=== PATIENT | female | born 1970 | race Caucasian/White ===

== ENCOUNTER 2021-02-19 08:29 | Outpatient (REF) | payer OTHER, MEDICAID, SELFPAY ==
--- NOTE | ~2021-02-19 | XR_ITS ---
EXAMINATION: XR LUMBOSACRAL SPINE CLINICAL INFORMATION: Back pain COMPARISON: None TECHNIQUE: Three views of the lumbosacral spine. FINDINGS: There are 5 nonrib bearing lumbar vertebra. The bony texture and alignment is satisfactory. No acute fracture, spinal listhesis, spondylolysis identified. Disc spaces are maintained. Sacroiliac joints unremarkable. Pedicles intact. Psoas margins are evident. XR/XR lumbar spine 2-3V IMPRESSION: No significant bony abnormality of the lumbar spine identified.
== END 2021-02-19 08:30 | disposition home or self-care (01) ==
LOC: HO.XRAY 08:29
PROVIDERS: PCP Internal Medicine; Visit Provider Psychiatry & Neurology Neurology
DX: M54.9 Dorsalgia, unspecified (principal)
CPT/HCPCS: 72100

== ENCOUNTER 2021-02-25 14:05 | Outpatient (REF) | payer OTHER, MEDICAID, SELFPAY ==
[2021-02-25 15:01] LABS: Influenza A PCR NEGATIVE (Negative); Influenza B PCR NEGATIVE (Negative); Resp Syncy Virus RNA Qual PCR NEGATIVE (Negative); SARS COV2 PCR INHOUSE NEGATIVE (Negative)
== END 2021-02-25 14:06 | disposition home or self-care (01) ==
LOC: HO.LNP 14:05
PROVIDERS: Visit Provider Physician Assistant
DX: R11.0 Nausea (principal); Z20.822 Contact with and (suspected) exposure to COVID-19
CPT/HCPCS: 0241U

== ENCOUNTER 2021-02-26 07:24 | Emergency (ER) | payer OTHER, MEDICAID, SELFPAY ==
[2021-02-26 07:35] VITALS: BP 106/73; PULSE 84; RESP 18; TEMP 36.6; O2SAT 98; BMI 19.0
--- NOTE | 2021-02-26 08:02 | ED.GENADULT ---
HPI - General Adult General Chief complaint: General Medical Stated complaint: multiple complaints Time Seen by Provider: 02/26/21 08:02 Source: patient Mode of arrival: ambulatory Limitations: no limitations History of Present Illness HPI narrative: This is a 50-year-old female presenting to the emergency department with dark urine, malaise and an abdominal hernia that she is concerned about. Patient tells me that over the past week she does has not been feeling right, she tells me that her urine has been brown, she has been feeling tired and fatigued. And she also tells me that from time to time she has an abdominal hernia that she pushes back in. She tells me she went to an urgent care at of [facility], and they told her to get evaluated in the emergency department. Patient is not vaccinated against COVID. She tells me this may be related to her new diagnosis of hepatitis. She has no other complaints at this time. Onset (ago): week(s) (1) Radiation: non-radiation Severity: moderate Pain Consistency: constant Relieving factors: none Exacerbating factors: none Associated symptoms: denies other symptoms Treatments prior to arrival: none Related Data Home Medications Medication Instructions Recorded Confirmed acetaminophen 300 mg-codeine 30 mg tab PO 02/25/21 tablet alprazolam 0.5 mg tablet 0.5 mg PO TID PRN 02/25/21 carisoprodol 350 mg tablet 350 mg PO BEDTIME PRN 02/25/21 dextroamphetamine-amphetamine 10 1 tab PO BID 02/25/21 mg tablet ibuprofen 600 mg tablet 600 mg PO TID 02/25/21 norethindrone (contraceptive) 0.35 0.35 mg PO DAILY 02/25/21 mg tablet Allergies Allergy/AdvReac Type Severity Reaction Status Date / Time No Known Allergies Allergy Verified 02/26/21 07:35 [No Known Allergies*] Review of Systems Review of Systems: Constitutional : No Weight loss, No Fever, No Chills, + Fatigue, + Malaise ENT/Mouth : No sore throat, No Rhinorrhea Eyes: No Eye Pain, No Swelling, No Redness Cardiovascular : No Chest Pain, No SOB, No Dyspnea on Exertion, No Orthopnea, No Edema, No Palpitations Respiratory : No Cough, No Sputum, No Wheezing Gastrointestinal : No Nausea, No Vomiting, No Diarrhea, No Constipation, No abdominal Pain, No Hematochezia, No Melena, +abdominal hernia Genitourinary : No Dysuria, No Urinary Frequency, No Hematuria, + dark urine Musculoskeletal : No joint pain, No Myalgias, No Joint Swelling Skin : No Skin Lesions, No rash Neuro : No Weakness, No Numbness, No Dizziness, No Headache All other systems reviewed and are negative Yes all other systems are reviewed and are negative [facility] Past Medical History Attestation statement: The following information was validated with the patient. Source: old records reviewed and nursing notes reviewed Social History Social History Advance Directives: No Advance Directives Information Provided: No Physical Exam Vital Signs: Vital Signs: Last Vital Signs Temp 98 F 02/26/21 08:31 Pulse 59 02/26/21 08:31 Resp 15 02/26/21 08:31 BP 111/59 L 02/26/21 08:31 Pulse Ox 95 02/26/21 08:31 BMI result Body Mass Index 19.0 VSS Appearance: Alert.? Oriented X3.? No acute distress.? Head: Normocephalic, atraumatic, no step-offs or deformities Eyes: Pupils equal, round and reactive to light.? ENT: Pharynx normal.? Neck: Normal inspection.? Neck supple.? CVS: Normal heart rate and rhythm.? Pulses normal.? Respiratory: No respiratory distress.? Breath sounds normal.? Abdomen: Soft and nontender.?Normoactive bowel sounds. + small soft easily reducible abdominal hernia, painless 2 cm above umbillicus Skin: Skin warm and dry.? Normal skin color.? Normal skin turgor.? Extremities: No lower extremity edema.? No calf ttp. 5/5 strength to bilateral upper and lower extremities Back: No midline tenderness, no C-spine tenderness, full range of motion, no CVA tenderness bilaterally Neuro: Oriented X 3.? No motor deficit.? No sensory deficit. Course Reevaluation(s) Reevaluation #1: No leukocytosis or anemia noted. Paitents transaminases noted to be slightly elevated, glucose low 58. I brought patient pudding, and two apple juices. Urine is clean, COVID test negative. Patient doesn't report nausea, vomiting, diarrhea or constipation. Very unlikely this is obstruction. Time: 08:56 Reevaluation #2: I educated patient on her laboratory studies. She starts yelling at me, nurse Ronni at the bedside, patient is unhappy because she wants her hernia repaired today. Patient does not understand that this is not an emergent procedure. I have also told patient that here in the emergency department we do not treat hepatitis-C and she requires prompt follow-up by Infectious Disease. Patient starts yelling at me and tells me i need a repair now Patient now tells me she has abdominal pain and body aches. Will give Tylenol Will repeat POC. Prior to DC Time: 09:22 Reevaluation #3: Patient refusing repeat point of care. She has been going to the vending machine and eating, she ate the putting I provided her as well as to apple juices. I gave patient Tylenol for body aches however she got upset PE she states that she is having severe pain. She is screaming in the hallway, telling me you suck , and telling me that the nurse sucks too . I tried to explain to the patient that hepatitis C is not something that we treat here in the emergency department, I told her her labs do not show any acute changes. And I tried to tell her that her abdominal hernia requires outpatient follow-up with a general surgeon. Patient upset. Comfortable with discharge. Medical Decision Making MDM Narrative Medical decision making narrative: 805 50 yo F pmhx hep C presents to ED w/ brow unrine , fatigue/malaise and an abdominal hernia X1 week PE benign did note a small soft easily reducible abdominal hernia, painless 2 cm above umbillicus. Unlikely this is incarcerated. Plan basic labs, UA. No need for imaging at this time as abdomen is soft nontender, nondistended. No signs or symptoms of obstruction. Lab Data Result diagrams: 02/26/21 08:37 02/26/21 08:37 Labs: Lab Results 02/26/21 02/26/21 02/26/21 Range/Units 07:43 08:37 08:37 WBC 8.6 (4.8-10.8) X10*3/uL RBC 4.53 (4.20-5.50) X10*6/uL Hgb 13.8 (12.0-16.0) g/dl Hct 42.5 (37.0-47.0) % MCV 93.8 (80.0-98.0) fL MCH 30.5 (27.0-33.0) pg MCHC 32.5 (31.0-35.0) g/dl RDW 11.9 (11.0-16.0) % Plt Count 218 (160-400) X10*3/uL MPV 9.0 L (9.4-12.3) fL Immature Gran % (Auto) 0.5 H (0.0-0.4) % Neut % (Auto) 50.8 (45-73) % Lymph % (Auto) 27.4 (20-40) % [place] % (Auto) 4.6 (2-11) % Eos % (Auto) 16.2 H (0-4) % Baso % (Auto) 0.5 (0-2) % Lymph # (Auto) 2.4 (1.2-4.9) X10*3/uL Independence # (Auto) 0.4 (0.1-1.2) X10*3/uL Eos # (Auto) 1.4 H (0.0-0.4) X10*3/uL Baso # (Auto) 0.0 (0.0-0.2) X10*3/uL Abs Immat Gran (auto) 0.04 H (0.00-0.03) X10*3/uL Absolute Neuts (auto) 4.4 (2.0-8.3) x10*3/uL Absolute Nucleated RBC 0.000 (0.0-0.012) X10*3/uL Nucleated RBC % (auto) 0.0 (0.0-0.2) /100WBC Sodium 142 (135-145) mmol/L Potassium 4.5 (3.3-5.1) mmol/L Chloride 107 (96-108) mmol/L Carbon Dioxide 29 (22-29) mmol/L Anion Gap 11 L (12-20) BUN 20 H (9-16) mg/dL Creatinine 0.73 (0.5-1.4) mg/dL Estim Creat Clear Calc 84.3 Estimated GFR > 60 Random Glucose 58 L* (60-115) mg/dL Calcium 9.0 (8.4-10.2) mg/dL Magnesium 2.0 (1.6-2.6) mg/dL Total Bilirubin 0.3 (0.0-1.0) mg/dL AST 49 H (5-31) U/L ALT 93 H (0-31) U/L Alkaline Phosphatase 62 (39-117) U/L Total Protein 6.4 L (6.5-8.0) g/dL Albumin 3.9 (3.5-5.0) g/dL Urine Color Urine Appearance Urine pH (5.0-8.0) Ur Specific [place] (1.005-1.025) Urine Protein (NEG-TRACE) MG/DL Urine Glucose (UA) (NEG) MG/DL Urine Ketones (NEG) MG/DL Urine Blood (NEG) Urine Nitrite (NEG) Ur Leukocyte Esterase (NEG) COVID-19 (LAO) Negative (Negative) COVID-19 Clin Com See Note 02/26/21 Range/Units 08:37 WBC (4.8-10.8) X10*3/uL RBC (4.20-5.50) X10*6/uL Hgb (12.0-16.0) g/dl Hct (37.0-47.0) % MCV (80.0-98.0) fL MCH (27.0-33.0) pg MCHC (31.0-35.0) g/dl RDW (11.0-16.0) % Plt Count (160-400) X10*3/uL MPV (9.4-12.3) fL Immature Gran % (Auto) (0.0-0.4) % Neut % (Auto) (45-73) % Lymph % (Auto) (20-40) % Independence % (Auto) (2-11) % Eos % (Auto) (0-4) % Baso % (Auto) (0-2) % Lymph # (Auto) (1.2-4.9) X10*3/uL Independence # (Auto) (0.1-1.2) X10*3/uL Eos # (Auto) (0.0-0.4) X10*3/uL Baso # (Auto) (0.0-0.2) X10*3/uL Abs Immat Gran (auto) (0.00-0.03) X10*3/uL Absolute Neuts (auto) (2.0-8.3) x10*3/uL Absolute Nucleated RBC (0.0-0.012) X10*3/uL Nucleated RBC % (auto) (0.0-0.2) /100WBC Sodium (135-145) mmol/L Potassium (3.3-5.1) mmol/L Chloride (96-108) mmol/L Carbon Dioxide (22-29) mmol/L Anion Gap (12-20) BUN (9-16) mg/dL Creatinine (0.5-1.4) mg/dL Estim Creat Clear Calc Estimated GFR Random Glucose (60-115) mg/dL Calcium (8.4-10.2) mg/dL Magnesium (1.6-2.6) mg/dL Total Bilirubin (0.0-1.0) mg/dL AST (5-31) U/L ALT (0-31) U/L Alkaline Phosphatase (39-117) U/L Total Protein (6.5-8.0) g/dL Albumin (3.5-5.0) g/dL Urine Color YELLOW Urine Appearance CLEAR Urine pH 6.0 (5.0-8.0) Ur Specific [place] >= 1.030 H (1.005-1.025) Urine Protein NEG (NEG-TRACE) MG/DL Urine Glucose (UA) NEG (NEG) MG/DL Urine Ketones NEG (NEG) MG/DL Urine Blood NEG (NEG) Urine Nitrite NEG (NEG) Ur Leukocyte Esterase NEG (NEG) COVID-19 (ALO) (Negative) COVID-19 Clin Com Critical Care Time Critical Care Time Critical Care Time: No Discharge Plan Discharge Clinical Impression: Malaise, Hernia Patient Disposition: Home, Self-Care Instructions: Fatigue (ED) Additional Instructions: Take your medications as prescribed. If you were prescribed antibiotics today, it is important that you take your medication to their entirety, do not skip any doses, do not finish them early. Follow-up with your primary care provider this week. I have provided you with number for our surgeons, they can further evaluate this hernia if it is bothering you. Return to the emergency department with new or worsening symptoms. In case of emergency call 911 You tested negative for COVID-19 today. You mention to me that you tested positive for hepatitis-C, this requires prompt follow-up by Infectious Disease. I have provided you with our infectious disease doctor here at [facility]. Your abdominal hernia requires further workup from a general surgeon. Prescriptions: No Action ibuprofen 600 mg tablet 600 mg PO TID RF: 0 alprazolam 0.5 mg tablet 0.5 mg PO TID PRNRF: 0 dextroamphetamine-amphetamine 10 mg tablet 1 tab PO BID RF: 0 norethindrone (contraceptive) 0.35 mg tablet 0.35 mg PO DAILY RF: 0 acetaminophen-codeine 300-30 mg tablet PO RF: 0 carisoprodol 350 mg tablet 350 mg PO BEDTIME PRNRF: 0 Referrals: Evelyn Randall MD [Physician] - 2 days Bertin Ruiz MD [Primary Care Provider] - 2 days Stand Alone Forms: Work/School Release
[2021-02-26 08:31] VITALS: BP 111/59; PULSE 59; RESP 15; TEMP 36.6; O2SAT 95
[2021-02-26 08:47] LABS: COVID-19 Test Negative (Negative)
[2021-02-26 08:51] LABS: MANUAL DIFF FLAG NO
[2021-02-26 08:52] LABS: Appearance Urine CLEAR; Basophils Percent Auto 0.5 % (0-2); Color Urine YELLOW; Eosinophils Absolute Auto 1.4 X10*3/uL (0.0-0.4); Eosinophils Percent Auto 16.2 % (0-4); Glucose Urine UA NEG (NEG); Hematocrit 42.5 % (37.0-47.0); Hemoglobin 13.8 g/dl (12.0-16.0); Imm Gran Abs Auto 0.04 X10*3/uL (0.00-0.03); Imm Gran Pct Auto 0.5 % (0.0-0.4); Leukocyte Esterase Urine NEG (NEG); Lymphocytes Absolute Auto 2.4 X10*3/uL (1.2-4.9); Lymphocytes Percent Auto 27.4 % (20-40); Mean Corpuscular HGB Conc 32.5 g/dl (31.0-35.0); Mean Corpuscular Hemoglobin 30.5 pg (27.0-33.0); Mean Corpuscular Volume 93.8 fL (80.0-98.0); Monocytes Absolute Auto 0.4 X10*3/uL (0.1-1.2); Monocytes Percent Auto 4.6 % (2-11); Neutrophils Absolute Auto 4.4 x10*3/uL (2.0-8.3); Neutrophils Percent Auto 50.8 % (45-73); Nitrite Urine NEG (NEG); Platelet Count 218 X10*3/uL (160-400); Red Blood Count 4.53 X10*6/uL (4.20-5.50); Red Cell Distribution Width 11.9 % (11.0-16.0); Specific Gravity - Urine >= 1.030 (1.005-1.025); Urine Blood NEG (NEG); Urine Ketones NEG (NEG); Urine Protein NEG (NEG-TRACE); White Blood Count 8.6 X10*3/uL (4.8-10.8)
[2021-02-26 09:12] LABS: Alanine Aminotransferase 93 U/L (0-31); Albumin Level 3.9 g/dL (3.5-5.0); Alkaline Phosphatase 62 U/L (39-117); Anion Gap 11 (12-20); Aspartate Amino Transferase 49 U/L (5-31); Bilirubin Total 0.3 mg/dL (0.0-1.0); Blood Urea Nitrogen 20 mg/dL (9-16); Carbon Dioxide 29 mmol/L (22-29); Chloride 107 mmol/L (96-108); Creatinine Clr Calc Pharmacy 84.3; Estimated Glomerular Filt Rate > 60; Glucose Random 58 mg/dL (60-115); Potassium 4.5 mmol/L (3.3-5.1); Sodium 142 mmol/L (135-145); Total Protein 6.4 g/dL (6.5-8.0)
--- NOTE | 2021-02-26 09:22 | PC.NURSE ---
PT WAS OFFERED A VARIETY OF DRINKS AND FOOD TO CORRECT LOW BS. SHE IS AGITATED WITH PROVIDER AND THREATENING AT TIMES WHEN EDUCATED ON FOLLOW UP CARE REQUIRED AN OP. SHE IS STATINGAND DEMANDING NEEDS FOR HEP C CARE, HERNIA, BACK PAIN...SHE WAS OFFERED PAIN MANAGEMENT BUT CONTINUES TO VOICE COMPLAINTS
--- NOTE | 2021-02-26 10:58 | PC.NURSE ---
PT STORMED TO DESK ASKING TO SPEAK TO THE [employer] PRESIDENT/PRACTICE OWNER. THIS RN INTRODUCED HERSELF AND ASKED HOW I COULD BE OF ASSISTANCE. PT ANGRY WITH PROVIDER AND NURSE STATING THEY AREN'T DOING THEIR FUCKING JOB . IF THE PROVIDER COULD SEE THROUGH HER LONG EYELASHES, MAYBE SHE COULD SEE I AM IN PAIN . PT IS AMBULATORY, NO FACIAL GRIMACING OR S/S OF DISTRESS. DRINKING JUICE AND EATING SNACKS AT THE BEDSIDE. PT BACK AND FORTH WITH THIS RN STATING I'M HERE TO GET MY HERNIA REPAIRED . PROVIDER EVALUATED PATIENT AND PROVIDED PATIENT WITH INFORMATION REGARDING OUTPATIENT FOLLOW UP CARE. PT ANGRY THAT WE ARE NOT TREATING HER PROBLEMS . THIS RN PROVIDED PATIENT WITH HOSPITAL RESOURCES FOR PROVIDERS (PCP, SPECIALTY SURGEON, INFECTIOUS DISEASE). PT STORMED OUT OF ER, SWEARING AT STAFF. PT KICKED OPEN DOOR WITH FOOT AND WALKED OUT OF ED.
== END 2021-02-26 11:21 | disposition home or self-care (01) ==
PROVIDERS: Physician Assistant; Emergency Provider Emergency Medicine; PCP Internal Medicine
DX: R53.81 Other malaise (principal); K46.9 Unspecified abdominal hernia without obstruction or gangrene; F17.200 Nicotine dependence, unspecified, uncomplicated; B19.20 Unspecified viral hepatitis C without hepatic coma; Z20.822 Contact with and (suspected) exposure to COVID-19
CPT/HCPCS: 36415; 80053; 81003; 83735; 85025; 87635; 99283

== ENCOUNTER → 2021-03-08 10:18 | Outpatient (BNVA) | payer OTHER, MEDICAID, SELFPAY | PROVIDERS: PCP Internal Medicine; Referring Provider Internal Medicine; Visit Provider Surgery ==

== ENCOUNTER 2021-04-03 09:09 | Day surgery (SDC) | payer OTHER, MEDICAID, SELFPAY ==
[2021-03-28 11:11] VITALS: BMI 19.4
--- NOTE | 2021-04-02 09:33 | P.CONAN_ITS ---
Documented by User: Lelia Marino NP 04/02/21 09:34 HPI - Anesthesia Eval Consult details Narrative: 50yo F for Hernia Repair Ventral with Mesh PMFSH Active Problems Active Problems: All Active Problems (Updated 03/08/21 @ 10:54 by Darrion Restrepo MD) Tobacco dependence (Acute) Hepatitis C (Acute) Ventral hernia (Acute) Past Medical History Medical History (Updated 04/03/21 @ 09:53 by Lovely Knox RN) ADHD Anxiety Hepatitis C Hx of fracture of leg Panic disorder PTSD (post-traumatic stress disorder) Tobacco dependence Family History Family History (Updated 03/08/21 @ 10:29 by PATRIC Palacios) Paternal Grandfather Lung cancer Paternal Grandmother Lung cancer Surgical History Surgical History (Updated 04/03/21 @ 10:31 by Darrion Restrepo MD) History of tonsillectomy History of wisdom tooth extraction S/P repair of ventral hernia (04/03/21) Social History Social History (Updated 03/08/21 @ 10:30 by PATRIC Palacios) Alcohol intake: former Patient Tobacco Use Status: Current everyday Tobacco user Tobacco use type: Cigarette Meds Allergies Allergy/AdvReac Type Severity Reaction Status Date / Time No Known Allergies Allergy Verified 03/08/21 10:21 [No Known Allergies*] Home Medications Medication Instructions Recorded Confirmed Last Taken Type acetaminophen 300 mg-codeine 30 mg tab PO 02/25/21 03/08/21 04/03/21 06:30 History tablet alprazolam 0.5 mg tablet 0.5 mg PO TID PRN 02/25/21 03/28/21 04/03/21 06:30 History carisoprodol 350 mg tablet 350 mg PO BEDTIME PRN 02/25/21 03/28/21 Unknown History dextroamphetamine-amphetamine 10 1 tab PO BID 02/25/21 03/28/21 Unknown History mg tablet ibuprofen 600 mg tablet 600 mg PO TID 02/25/21 03/28/21 Unknown History norethindrone (contraceptive) 0.35 0.35 mg PO DAILY 02/25/21 03/28/21 Unknown History mg tablet Exam Exam Date and Time: April 02, 2021 0933 Height,Weight and Vital Signs: Height 5 ft 8 in Weight 58.06 kg Pertinent Lab Results Pertinent Lab Results: Laboratory Tests 02/26/21 02/26/21 08:37 08:37 WBC 8.6 Hgb 13.8 Hct 42.5 Plt Count 218 Sodium 142 Potassium 4.5 Chloride 107 Carbon Dioxide 29 BUN 20 H Creatinine 0.73 Assessment and Plan Assessment Anesthesia Assessment: Chart Reviewed Documented by User: Cortez Payne 04/03/21 15:31 [facility] Past Medical History Medical History (Updated 04/03/21 @ 09:53 by Lovely Knox RN) ADHD Anxiety Hepatitis C Hx of fracture of leg Panic disorder PTSD (post-traumatic stress disorder) Tobacco dependence Family History Family History (Updated 03/08/21 @ 10:29 by PATRIC Palacios) Paternal Grandfather Lung cancer Paternal Grandmother Lung cancer Family history of problems with anesthesia: No Surgical History Surgical History (Updated 04/03/21 @ 10:31 by Darrion Restrepo MD) History of tonsillectomy History of wisdom tooth extraction S/P repair of ventral hernia (04/03/21) History of Problems with Anesthesia: No Social History Social History (Updated 03/08/21 @ 10:30 by PATRIC Palacios) Alcohol intake: former Patient Tobacco Use Status: Current everyday Tobacco user Tobacco use type: Cigarette Meds Allergies Allergy/AdvReac Type Severity Reaction Status Date / Time No Known Allergies Allergy Verified 03/08/21 10:21 [No Known Allergies*] Home Medications Medication Instructions Recorded Confirmed Last Taken Type acetaminophen 300 mg-codeine 30 mg tab PO 02/25/21 03/08/21 04/03/21 06:30 History tablet alprazolam 0.5 mg tablet 0.5 mg PO TID PRN 02/25/21 03/28/21 04/03/21 06:30 History carisoprodol 350 mg tablet 350 mg PO BEDTIME PRN 02/25/21 03/28/21 Unknown History dextroamphetamine-amphetamine 10 1 tab PO BID 02/25/21 03/28/21 Unknown History mg tablet ibuprofen 600 mg tablet 600 mg PO TID 02/25/21 03/28/21 Unknown History norethindrone (contraceptive) 0.35 0.35 mg PO DAILY 02/25/21 03/28/21 Unknown History mg tablet Exam Airway Mallampati Class: II TM Dist: >3cm Neck ROM: Limited Loose/Missing/Broken Teeth: Yes (Fillings , poor dentation ) Heart: rrr Lungs: bl breath sounds Assessment and Plan Assessment Anesthesia Assessment: Anesthesia Plan Discussed Final Anesthetic Review Family History of Problems with Anesthesia: No History of Problems with Anesthesia: No NPO: Yes ASA Class: III Final Preanesthetic Review: Meds/Allgs Chart Reviewed, Consent Obtained/Reviewed and Anes Risks/Benef Reviewed Patient Risk: High Procedure Risk: Intermediate Anesthetic Plan Anesthetic Plan: GA Disposition: Standard PACU
[2021-04-03 09:32] LABS: UPreg QC Valid YES
[2021-04-03 09:33] LABS: Urine Pregnancy NEGATIVE (NEGATIVE)
[2021-04-03 09:38] VITALS: BP 97/57; PULSE 74; RESP 16; TEMP 37.2; O2SAT 97
[2021-04-03] MEDS: Lactated Ringers 1,000 ML 100 ML IVCONT (09:40)
--- NOTE | 2021-04-03 10:33 | W.PM.OPN ---
Operative Note Operative Note Date of Service: 04/03/21 Narrative: Preoperative diagnosis:Ventral Hernia Postoperative diagnosis:Ventral Hernia Procedure:Repair of Ventral Hernia Surgeon: Darrion Restrepo MD Pediatric Neuropsychologist: Floridalma Waller PA-C Anesthesia: General LMA Indications for procedure: 50 year old female patient presenting with complaints of a painful lump in the abdomen just above the umbilicus. Hernia noted on examination which increases in size with Valsalva and reduces with light pressure. Operative findings:Ventral hernia containing preperitoneal fat. Hernia repaired without mesh. Defect 0.5 cm diameter. Specimen:none Estimated blood loss:2 ml Complications:none Procedure details: The patient was brought to the OR and placed in a supine position. After administering general anesthesia, the skin was prepped and draped in a sterile fashion. A surgical safety timeout was called, the consent confirmed, preoperative antibiotics adminisitered, and venodyne boots placed. Local anesthesia consisting of 0.5% Sensorcaine was infiltrated into the skin around the hernia just above the umbilicus. A curviliniar incision was made with the blade and the incision carried down to the subcutaneous tissue. Blunt dissection used to dissect the hernia sac down to the fascial defect. Preperitoneal fat was noted but no peritoneum or bowel. The preperitoneal fat was excised with electrocautery. The defect was further defined with blunt dissection. The actual defect measured 0.5 cm, therefore a primary repair without mesh was performed. Two figure of eight sutures of #1 Ticron were used to close the defect. The wounds were irrigated with saline and additional local anesthesia infiltrated within the subcutaneous tissue. Dermis was then reapproximated with interrupted 3-0 Polysorb suture. Skin was closed with a running 4-0 Polysorb in a subcuticular fashion. Sterile dressings including steristrips, 2x2 gauze and tegaderm were applied. The patient tolerated the procedure well. Sponge, instrument, and needle counts were reported as correct. The patient was transferred to PACU in stable condition.
[2021-04-03 10:51] VITALS: BP 118/69; PULSE 83; RESP 15; TEMP 36.6; O2SAT 99
[2021-04-03 10:56] VITALS: BP 119/72; PULSE 77; RESP 16; O2SAT 96
[2021-04-03 11:01] VITALS: BP 116/72; PULSE 77; RESP 16; O2SAT 96
[2021-04-03 11:06] VITALS: BP 127/79; PULSE 75; RESP 16; O2SAT 96
[2021-04-03 11:21] VITALS: BP 111/50; PULSE 76; RESP 16; TEMP 36.6; O2SAT 96
--- NOTE | 2021-04-03 11:33 | MHC.SHP ---
Pre-Procedural Eval Section A Date of Service: 04/03/21 The patient is an INPATIENT: No Changes since office visit: Yes Patient answered all questions; No Cold of Flu in the past 2 weeks, No New Medical Problems and No Changes in Medication The History & Physical has been completed within 30 days and I have reviewed it.: Yes Section B Chief Complaint: Ventral Hernia Allergies: Allergies Allergy/AdvReac Type Severity Reaction Status Date / Time No Known Allergies Allergy Verified 03/08/21 10:21 [No Known Allergies*] Plan Diagnosis/Plan: Unchanged I have reviewed the history and physical and performed a pertinent physical examination on my patient. No changes have occurred unless specified.
== END 2021-04-03 11:56 | disposition home or self-care (01) ==
PROVIDERS: Nurse Practitioner; PCP Internal Medicine; Visit Provider Surgery
PROC: (CPT 49560; principal; 2021-04-03 10:20)
DX: K43.9 Ventral hernia without obstruction or gangrene (principal); B19.20 Unspecified viral hepatitis C without hepatic coma; Z79.899 Other long term (current) drug therapy; F17.210 Nicotine dependence, cigarettes, uncomplicated
CPT/HCPCS: 49560; 81025; J0690; J1100; J2250; J2405; J3010

== ENCOUNTER → 2021-04-16 12:16 | Outpatient (BNVA) | payer OTHER, MEDICAID, SELFPAY | PROVIDERS: PCP Internal Medicine; Referring Provider Internal Medicine; Visit Provider Surgery ==

== ENCOUNTER → 2022-08-29 11:17 | Outpatient (BNVA) | payer OTHER, MEDICAID, SELFPAY | PROVIDERS: PCP Internal Medicine; Visit Provider Surgery ==

== ENCOUNTER 2022-10-01 13:41 | Outpatient (REF) | payer MEDICAID, SELFPAY ==
--- NOTE | ~2022-10-01 | CT_ITS ---
EXAMINATION: CT ABDOMEN AND PELVIS WITHOUT CONTRAST CLINICAL INFORMATION: Z98.890 - Other specified post procedural states COMPARISON: 09/22/2018 TECHNIQUE: Multidetector volumetric imaging was performed from the superior aspect of the liver through the pubic symphysis. Sagittal and coronal reformatted images were obtained on the technologist's workstation. This CT examination was performed using dose optimization techniques as appropriate, variously including the following: *Automated exposure control *Adjustment of mA and/or kV according to patient size (this includes techniques or standardized protocols for targeted exams where dose is matched to indication/reason for exam; i.e. extremities or head) *Use of iterative reconstruction technique DLP: 311 mGy-cm FINDINGS: LUNG BASES: Unremarkable. LIVER: The liver has normal size, shape, and attenuation. No evidence of liver mass. GALLBLADDER AND BILIARY TREE: Gallbladder is without radiopaque stones, wall thickening or pericholecystic fluid. No dilated bile ducts. PANCREAS: Normal. No edema, pancreatic ductal dilatation or mass. SPLEEN: Normal. ADRENAL GLANDS: Normal. KIDNEYS AND URETERS: The kidneys have normal size and cortical thickness. No perinephric edema or fluid collection. No urolithiasis or hydroureteronephrosis. BLADDER: Normal. No calculi or wall thickening. BOWEL AND PERITONEUM: The gastrointestinal tract is not optimally evaluated on this noncontrast examination. Stomach is unremarkable. No dilated loops of bowel. There is some previously administered enteric contrast or calcific material within the lumen of the appendix, similar compared to 09/22/2018. No appendiceal wall thickening or periappendiceal fat stranding (i.e., no evidence of appendicitis). No focal bowel wall thickening or mesenteric fat stranding. No free fluid or pneumoperitoneum. ABDOMINAL WALL: Unremarkable. VASCULATURE: Unremarkable. LYMPH NODES: No pathologic sized lymph nodes in the abdomen or pelvis. No inguinal lymphadenopathy. PELVIC VISCERA: No evidence of uterine or adnexal mass. There is a trace, physiologic amount free fluid within the lower posterior pelvis. MUSCULOSKELETAL: Unremarkable. CT/CT abdomen pelvis wo IV con IMPRESSION: No acute imaging abnormality within the abdomen or pelvis. No evidence of nephrolithiasis, hydronephrosis, bowel obstruction or other significant abnormality on this noncontrast examination.
== END 2022-10-01 13:42 | disposition home or self-care (01) ==
LOC: HO.CT 13:41
PROVIDERS: PCP Internal Medicine; Visit Provider Surgery
DX: R19.03 Right lower quadrant abdominal swelling, mass and lump (principal); Z87.19 Personal history of other diseases of the digestive system; Z98.890 Other specified postprocedural states
CPT/HCPCS: 74176

== ENCOUNTER 2022-10-07 15:28 | Outpatient (AMB) | payer MEDICAID, SELFPAY ==
--- NOTE | 2022-10-07 15:30 | MHC.OFFVIS ---
Intake Vital Signs 10/07/22 15:36 Height 5 ft 8 in Weight 124 lb 8 oz BMI 18.9 BP 125/86 Blood Pressure Location Lt brachial Position Sitting Pulse 91 Intake Visit Reasons: Abd pain, CT scan results Intake Note: Patient is seen in office for CT scan results, following abdominal pain. 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 Required: No Accompanied by: Self / Same As Patient Allergies No Known Allergies [No Known Allergies*] Allergy (Verified 10/07/22 15:38) Medication List - Last Reconciled 10/09/22 by Darrion Restrepo MD acetaminophen-codeine 300-30 mg tabs PO alprazolam 0.5 mg PO TID PRN carisoprodol 350 mg PO BEDTIME PRN dextroamphetamine-amphetamine 10 mg 1 tab PO BID ibuprofen 600 mg PO TID nicotine (polacrilex) (Nicorette) 4 mg buccal Q1H norethindrone (contraceptive) 0.35 mg PO DAILY HPI HPI Comments History of Present Illness Details 51-year-old female patient with a previous history of a ventral hernia repaired on 04/03/2021 without mesh now returning with complaints of abdominal pain located near the incision and right upper quadrant/right lower quadrant associated with nausea, vomiting, gaseous distension, and constipation. She has otherwise been eating well and denies any weight loss. She noted a large lump when straining to the site of the umbilicus more in the right lower quadrant which comes and goes. This seems to be aggravated with exercise and other strenuous activity. Since her last visit she feels the pain may be aggravated by eating and relieved with fasting. She continues to report a lump which seems to move around. She subsequently underwent CT scan of the abdomen and pelvis which revealed no evidence of obstruction, hernia, abdominal mass or infection. She returns today to review the CT findings. [facility] Medical History ADHD Anxiety Hepatitis C Hx of fracture of leg Panic disorder PTSD (post-traumatic stress disorder) Tobacco dependence Surgical History History of tonsillectomy History of wisdom tooth extraction S/P repair of ventral hernia (04/03/21) Family History Paternal Grandfather Lung cancer Paternal Grandmother Lung cancer Social History Alcohol intake: former Patient Tobacco Use Status: Current everyday Tobacco user Tobacco use type: Cigarette Review of Systems Const All systems reviewed & are unremarkable except as noted in HPI and below Physical Exam Vital Signs: Last Vital Signs Pulse 91 10/07/22 15:36 BP 125/86 10/07/22 15:36 BMI result Body Mass Index 18.9 Const General: comfortable, no acute distress and anxious Nutritional Appearance: thin Orientation/consciousness: patient oriented x3 Limitations: no limitations HEENT Head: Yes normocephalic and Yes atraumatic Ears: hearing grossly normal bilaterally Resp Effort & Inspection: normal respiratory effort GI Other: Soft, nondistended, nontender, well-healed periumbilical incision, no hernia noted in the standing position with Valsalva maneuvers. No palpable mass, no rebound, guarding or rigidity. Skin Other: Warm, dry, no rash Neuro General: patient oriented x3 Extrem Other: No edema Assessment & Plan Assessment & Plan (1) Abdominal swelling, right lower quadrant: Comment: Crampy pain RUQ, ? gluten allergy, h/o third world travels Code(s): R19.03 - Right lower quadrant abdominal swelling, mass and lump Plan 51-year-old female patient with persistent almost crampy abdominal pain which seems to be diet related. Examination today revealed no palpable mass or hernia. CT findings were also negative. I suggested GI consultation for further evaluation possibly for IBS or food allergy. She also reports extensive [place] travel and is uncertain if she was exposed to any parasites, etc.. No further surgical intervention is recommended at this time. Orders: Referrals Gastroenterology Referral R19.03 - Right lower quadrant abdominal swelling, mass and lump Coding Level of Care Code Est Pt Level 3 (74522) Diagnoses Abdominal swelling, right lower quadrant R19.03
[2022-10-07 15:36] VITALS: BP 125/86; PULSE 91; BMI 18.9
== END 2022-10-07 16:13 | disposition home or self-care (01) ==
PROVIDERS: PCP Internal Medicine; Visit Provider Surgery
DX: R19.03 Right lower quadrant abdominal swelling, mass and lump (principal)
CPT/HCPCS: 99213

== ENCOUNTER → 2022-10-07 15:28 | Outpatient (BNVA) | payer MEDICAID, SELFPAY | PROVIDERS: PCP Internal Medicine; Visit Provider Surgery | DX: R19.03 Right lower quadrant abdominal swelling, mass and lump (principal) | CPT/HCPCS: 99212 ==

== ENCOUNTER 2023-09-05 17:01 | Emergency (ER) | payer OTHER, SELFPAY ==
[2023-09-05 17:05] VITALS: BP 187/112; PULSE 91; RESP 16; TEMP 36; O2SAT 98; BMI 18.5
--- NOTE | 2023-09-05 17:05 | ED_ITS ---
HPI - General Adult General Chief complaint: Nausea/Vomiting/Diarrhea Stated complaint: Difficulty breathing/Vomiting Time Seen by Provider: 09/05/23 20:57 Source: patient Mode of arrival: ambulatory Limitations: no limitations History of Present Illness ED Provider: shabnam ARTHUR narrative: Patient's history of anxiety comes here with multiple complaints with nausea, vomiting to 3 times does have chronic pain had marijuana prior to arrival feel dehydrated Related Data Home Medications ?Medication ?Instructions ?Recorded ?Confirmed acetaminophen 300 mg-codeine 30 mg tab PO 02/25/21 10/09/22 tablet alprazolam 0.5 mg tablet 0.5 mg PO TID PRN Anxiety 02/25/21 10/09/22 carisoprodol 350 mg tablet 350 mg PO BEDTIME PRN Pain 02/25/21 10/09/22 dextroamphetamine-amphetamine 10 1 tab PO BID 02/25/21 10/09/22 mg tablet ibuprofen 600 mg tablet 600 mg PO TID 02/25/21 10/09/22 norethindrone (contraceptive) 0.35 0.35 mg PO DAILY 02/25/21 10/09/22 mg tablet Previous Rx's ?Medication ?Instructions ?Recorded nicotine (polacrilex) 4 mg gum 4 mg buccal Q1H #50 ea 03/08/21 (Nicorette) Allergies Allergy/AdvReac Type Severity Reaction Status Date / Time No Known Allergies Allergy Verified 09/05/23 17:08 [No Known Allergies*] Review of Systems 2 Review of Systems: Yes all other systems are reviewed and are negative PMFSH Past Medical History Medical History PTSD (post-traumatic stress disorder) Anxiety Panic disorder ADHD Hx of fracture of leg Hepatitis C Tobacco dependence Surgical History S/P repair of ventral hernia (04/03/21) History of wisdom tooth extraction History of tonsillectomy Family History Family History Paternal Grandfather Lung cancer Paternal Grandmother Lung cancer Social History Social History Alcohol intake: former Patient Tobacco Use Status: Current everyday Tobacco user Tobacco use type: Cigarette Advance Directives: No Advance Directives Information Provided: No Physical Exam ED Vital Signs: Vital Signs - 24 hr 09/05/23 17:05 09/05/23 19:59 09/05/23 22:00 Temperature 96.8 F 97.7 F 98.3 F Pulse Rate 91 66 75 Respiratory Rate 16 20 19 Blood Pressure 187/112 H 136/80 147/92 H Pulse Oximetry 98 100 98 Oxygen Delivery Method Room Air Room Air Room Air 09/05/23 23:33 Temperature 98.3 F Pulse Rate 75 Respiratory Rate 19 Blood Pressure 147/92 H Pulse Oximetry 98 Oxygen Delivery Method Room Air BMI result Body Mass Index 18.5 Appearance: Alert. Oriented X3. Anxious Eyes: No pallor or icterus ENT: Pharynx normal. Oral Mucosa moist Neck: Normal inspection. Neck supple. CVS: Normal heart rate and rhythm. Pulses normal. Respiratory: No respiratory distress. Equal air entry bilateral, no wheezing/rales/rhonchi Abdomen: Soft and nontender. Bowel sounds are present, no mass palpable, no CVA tenderness Skin: Skin warm and dry. Normal skin color. Normal skin turgor. Extremities: No lower extremity edema. No calf tenderness Neuro: Oriented X 3. Course Course Course Narrative: This is an RME performed by Ricky Olmstead CNP: Additional HPI, ROS, PE not included below will be deferred to primary provider. Patient is a 52-year-old female who presents emergency department for evaluation of nausea, vomiting, severe ABD pain, onset 1 hour prior to arrival. Reports associated shortness of breath, anxiety. Also complaining of chronic severe neck pain Plan: Labs, urinalysis, viral panel, EKG Medications Administered Discontinued Medications Generic Name Dose Route Start Last Admin Trade Name Freq PRN Reason Stop Dose Admin Sodium Chloride 1,000 mls @ 999 mls/hr 09/05/23 21:51 09/05/23 22:18 Ns IV 09/05/23 22:51 999 mls/hr .Q1H1M ONE Administration Ketorolac Tromethamine 30 mg 09/05/23 21:51 09/05/23 22:18 Ketorolac Tromethamine 30 Mg/Ml Vial IVPUSH 09/05/23 21:52 30 mg ONCE ONE Administration Lorazepam 1 mg 09/05/23 21:51 09/05/23 22:18 Lorazepam 2 Mg/Ml Vial IVPUSH 09/05/23 21:52 1 mg STAT STA Administration Ondansetron HCl 4 mg 09/05/23 17:07 09/05/23 17:12 Ondansetron Odt 4 Mg Tab.Adriannadis VIOLETINGU 09/05/23 17:08 4 mg ONCE ONE Administration Medical Decision Making Differential Diagnosis Differential Diagnoses: The differential diagnosis associated with the presentation includes Anxiety/IBS/viral syndrome Lab Data MDM Lab Attestation statement: I reviewed the patient's lab results. 09/05/23 17:24 09/05/23 17:24 Labs: Lab Results 09/05/23 09/05/23 09/05/23 Range/Units 17:24 17:34 22:02 WBC 10.9 H (4.8-10.8) X10*3/uL RBC 4.98 (4.20-5.50) X10*6/uL Hgb 14.6 (12.0-16.0) g/dl Hct 42.1 (37.0-47.0) % MCV 84.5 (80.0-98.0) fL MCH 29.3 (27.0-33.0) pg MCHC 34.7 (31.0-35.0) g/dl RDW 12.0 (11.0-16.0) % Plt Count 270 (160-400) X10*3/uL MPV 8.9 L (9.4-12.3) fL Immature Gran % (Auto) 0.3 (0.0-0.4) % Neut % (Auto) 69.9 (45-73) % Lymph % (Auto) 24.4 (20-40) % [place] % (Auto) 3.9 (2-11) % Eos % (Auto) 1.2 (0-4) % Baso % (Auto) 0.3 (0-2) % Lymph # (Auto) 2.7 (1.2-4.9) X10*3/uL [place] # (Auto) 0.4 (0.1-1.2) X10*3/uL Eos # (Auto) 0.1 (0.0-0.4) X10*3/uL Baso # (Auto) 0.0 (0.0-0.2) X10*3/uL Abs Immat Gran (auto) 0.03 (0.00-0.03) X10*3/uL Absolute Neuts (auto) 7.7 (2.0-8.3) x10*3/uL Absolute Nucleated RBC 0.000 (0.0-0.012) X10*3/uL Nucleated RBC % (auto) 0.0 (0.0-0.2) /100WBC Sodium 138 (135-145) mmol/L Potassium 4.3 (3.3-5.1) mmol/L Chloride 104 (96-108) mmol/L Carbon Dioxide 24 (22-29) mmol/L Anion Gap 14 (12-20) BUN 13 (9-16) mg/dL Creatinine 0.80 (0.5-1.4) mg/dL Estim Creat Clear Calc 73.3 Estimated GFR > 60 Random Glucose 108 (60-115) mg/dL Calcium 9.6 D (8.4-10.2) mg/dL Magnesium 2.1 (1.6-2.6) mg/dL Total Bilirubin 0.9 (0.0-1.0) mg/dL AST 25 (5-31) U/L ALT 18 (0-31) U/L Alkaline Phosphatase 58 (39-117) U/L Total Creatine Kinase 148 H (26-140) U/L Troponin I High Sens < 2.7 (<3.5-17.0) ng/L Total Protein 7.0 (6.5-8.0) g/dL Albumin 4.5 (3.5-5.0) g/dL Lipase 9 (8-78) U/L Urine Color Yellow Urine Appearance Cloudy Urine pH 5.5 (5.0-9.0) Ur Specific [place] >= 1.030 H (1.005-1.025) Urine Protein Trace (Neg-Trace) mg/dL Urine Glucose (UA) Negative (Negative) mg/dL Urine Ketones Trace (Negative) mg/dL Urine Blood Negative (Negative) Urine Nitrite Negative (Negative) Ur Leukocyte Esterase Negative (Negative) Urine Opiates Screen POSITIVE H (Not Detect) Ur Buprenorphine Scrn Not Detected (Not Detect) ng/mL Ur Oxycodone Screen Not Detected (Not Detect) ng/mL Urine Methadone Screen Not Detected (Not Detect) ng/mL Urine Fentanyl Screen Not Detected (Not Detect) Ur Barbiturates Screen Not Detected (Not Detect) Ur Phencyclidine Scrn Not Detected (Not Detect) Ur Amphetamines Screen POSITIVE H (Not Detect) U Benzodiazepines Scrn Not Detected (Not Detect) Urine Cocaine Screen Not Detected (Not Detect) U Marijuana (THC) Screen POSITIVE H (Not Detect) Influenza Type A (PCR) NEGATIVE (Negative) Influenza Type B (PCR) NEGATIVE (Negative) RSV RNA Qual (PCR) NEGATIVE (Negative) SARS-CoV-2 RNA (RT-PCR) NEGATIVE (Negative) Discharge Plan Discharge Clinical Impression: Anxiety, Chronic pain Patient Disposition: Home, Self-Care Instructions: Chronic Pain (ED), Anxiety (ED) Additional Instructions: Drink plenty of fluids Take medication as prescribed by your PCP follow with your psychiatrist and PCP Prescriptions: No Action ibuprofen 600 mg tablet 600 mg PO TID alprazolam 0.5 mg tablet 0.5 mg PO TID PRN (Reason: Anxiety) dextroamphetamine-amphetamine 10 mg tablet 1 tab PO BID norethindrone (contraceptive) 0.35 mg tablet 0.35 mg PO DAILY acetaminophen-codeine 300-30 mg tablet PO carisoprodol 350 mg tablet 350 mg PO BEDTIME PRN (Reason: Pain) nicotine (polacrilex) [Nicorette] 4 mg gum 4 mg buccal Q1H Qty: 50 2RF Interventions: ED Discharge Assessment Last Done: 09/05/23 23:33 Discharge Date/Time: 09/05/23 23:34 Print Language: Icelandic
--- NOTE | 2023-09-05 17:08 | ECG_ITS ---
Test Reason : nausea/vomiting Blood Pressure : / mmHG Vent. Rate : 076 BPM Atrial Rate : 076 BPM P-R Int : 126 ms QRS Dur : 084 ms QT Int : 402 ms P-R-T Axes : 082 076 057 degrees QTc Int : 452 ms Normal sinus rhythm Biatrial enlargement Minimal voltage criteria for LVH, may be normal variant ( Sokolow-Stauffer ) Nonspecific ST abnormality Abnormal ECG No previous ECGs available Referred By: Mary Olmstead Electronically Signed By:Abel Delarosa
[2023-09-05] MEDS: Ondansetron ODT 4 MG TAB.RAPDIS TRANSLINGU (17:12)
[2023-09-05 17:33] LABS: MANUAL DIFF FLAG NO
[2023-09-05 17:35] LABS: Basophils Percent Auto 0.3 % (0-2); Eosinophils Absolute Auto 0.1 X10*3/uL (0.0-0.4); Eosinophils Percent Auto 1.2 % (0-4); Hematocrit 42.1 % (37.0-47.0); Hemoglobin 14.6 g/dl (12.0-16.0); Imm Gran Abs Auto 0.03 X10*3/uL (0.00-0.03); Imm Gran Pct Auto 0.3 % (0.0-0.4); Lymphocytes Absolute Auto 2.7 X10*3/uL (1.2-4.9); Lymphocytes Percent Auto 24.4 % (20-40); Mean Corpuscular HGB Conc 34.7 g/dl (31.0-35.0); Mean Corpuscular Hemoglobin 29.3 pg (27.0-33.0); Mean Corpuscular Volume 84.5 fL (80.0-98.0); Mean Platelet Volume 8.9 fL (9.4-12.3); Monocytes Absolute Auto 0.4 X10*3/uL (0.1-1.2); Monocytes Percent Auto 3.9 % (2-11); Neutrophils Absolute Auto 7.7 x10*3/uL (2.0-8.3); Neutrophils Percent Auto 69.9 % (45-73); Platelet Count 270 X10*3/uL (160-400); Red Blood Count 4.98 X10*6/uL (4.20-5.50); White Blood Count 10.9 X10*3/uL (4.8-10.8)
[2023-09-05 17:53] LABS: Alanine Aminotransferase 18 U/L (0-31); Albumin Level 4.5 g/dL (3.5-5.0); Alkaline Phosphatase 58 U/L (39-117); Anion Gap 14 (12-20); Aspartate Amino Transferase 25 U/L (5-31); Bilirubin Total 0.9 mg/dL (0.0-1.0); Blood Urea Nitrogen 13 mg/dL (9-16); Calcium 9.6 mg/dL (8.4-10.2); Carbon Dioxide 24 mmol/L (22-29); Chloride 104 mmol/L (96-108); Creatinine Clr Calc Pharmacy 73.3; Estimated Glomerular Filt Rate > 60; Glucose Random 108 mg/dL (60-115); Lipase 9 U/L (8-78); Magnesium 2.1 mg/dL (1.6-2.6); Potassium 4.3 mmol/L (3.3-5.1); Sodium 138 mmol/L (135-145)
[2023-09-05 18:05] LABS: Appearance Urine Cloudy; Color Urine Yellow; Glucose Urine UA Negative (Negative); Leukocyte Esterase Urine Negative (Negative); Nitrite Urine Negative (Negative); PH 5.5 (5.0-9.0); Specific Gravity - Urine >= 1.030 (1.005-1.025); Urine Blood Negative (Negative); Urine Ketones Trace mg/dL (Negative); Urine Protein Trace mg/dL (Neg-Trace)
[2023-09-05 18:09] LABS: Troponin-I High Sensitivity < 2.7 ng/L (<3.5-17.0)
[2023-09-05 18:15] LABS: Influenza A PCR NEGATIVE (Negative); Influenza B PCR NEGATIVE (Negative); Resp Syncy Virus RNA Qual PCR NEGATIVE (Negative); SARS COV2 PCR INHOUSE NEGATIVE (Negative)
[2023-09-05 19:59] VITALS: BP 136/80; PULSE 66; RESP 20; TEMP 36.5; O2SAT 100
[2023-09-05 22:00] VITALS: BP 147/92; PULSE 75; RESP 19; TEMP 36.8; O2SAT 98
[2023-09-05] MEDS: LORazepam 2 MG/ML VIAL 1 MG IVPUSH (22:18)
[2023-09-05] MEDS: Ketorolac Tromethamine 30 MG/ML VIAL IVPUSH (22:18)
[2023-09-05] MEDS: 0.9 % Sodium Chloride 1,000 ML 999 ML IV (22:18)
[2023-09-05 22:22] LABS: Amphetamine Screen Urine POSITIVE (Not Detect); Barbiturates, Urine Not Detected (Not Detect); Benzodiazepines Screen Urine Not Detected (Not Detect); Buprenorphine Scr Not Detected (Not Detect); Cannabinoid Screen Urine POSITIVE (Not Detect); Cocaine Screen Urine Not Detected (Not Detect); Fentanyl, urine Not Detected (Not Detect); Methadone Screen, Urine Not Detected (Not Detect); Opiate Screen Urine POSITIVE (Not Detect); Oxycodone Screen Urine Not Detected (Not Detect); Phencyclidine Screen Urine Not Detected (Not Detect)
[2023-09-05 23:33] VITALS: BP 147/92; PULSE 75; RESP 19; TEMP 36.8; O2SAT 98
== END 2023-09-05 23:34 | disposition home or self-care (01) ==
PROVIDERS: Nurse Practitioner Family; Emergency Provider Internal Medicine
DX: F41.9 Anxiety disorder, unspecified (principal); G89.29 Other chronic pain; M54.2 Cervicalgia; R06.02 Shortness of breath; R11.2 Nausea with vomiting, unspecified; Z03.818 Encounter for observation for suspected exposure to other biological agents ruled out; F12.90 Cannabis use, unspecified, uncomplicated; F17.210 Nicotine dependence, cigarettes, uncomplicated; B19.20 Unspecified viral hepatitis C without hepatic coma; Z79.899 Other long term (current) drug therapy
CPT/HCPCS: 0241U; 36415; 80053; 80307; 81003; 82550; 83690; 83735; 84484; 85025; 93005; 96374; 96375; 99284; J1885; J2060

== ENCOUNTER → 2023-09-05 17:08 | Outpatient (BNV) | payer OTHER, SELFPAY | PROVIDERS: Emergency Provider Internal Medicine; Visit Provider Internal Medicine Cardiovascular Disease | DX: R94.31 Abnormal electrocardiogram [ECG] [EKG] (principal) | CPT/HCPCS: 93010 ==

== ENCOUNTER 2023-10-14 12:29 | Outpatient (REF) | payer OTHER, SELFPAY ==
--- NOTE | ~2023-10-14 | XR_ITS ---
EXAMINATION: XR CERVICAL SPINE CLINICAL INFORMATION: Neck pain COMPARISON: None available. TECHNIQUE: 3 views of the cervical spine were obtained. FINDINGS: No prevertebral soft tissue swelling. There is reversal of the expected lordosis. There is no acute fracture. There is marked narrowing of the C5/C6 disc with proliferative changes anteriorly. There is severe narrowing and possibly some ankylosis at C6/C7 with proliferative changes anteriorly. No convincing aggressive bone destruction. No large paraspinal abnormality. There is some uncovertebral joint spurring greatest on the right at C5/C6. XR/XR cervical spine 3V IMPRESSION: Reversal of expected lordosis. Severe changes at C5/C6 and C6/C7. These could be chronic Electronically signed by: John Gruber MD 10/14/2023 05:47 PM EDT
== END 2023-10-14 12:30 | disposition home or self-care (01) ==
LOC: HO.XRAY 12:29
PROVIDERS: PCP Nurse Practitioner Family; Visit Provider Psychiatry & Neurology Neurology
DX: M54.2 Cervicalgia (principal)
CPT/HCPCS: 72040

== ENCOUNTER 2023-11-05 11:43 | Outpatient (AMB) | payer OTHER, SELFPAY ==
--- NOTE | 2023-11-05 11:52 | A.OFFPC_ITS ---
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 Unit Aide Required: No Is last menstrual period known: No Post menopausal: No Patient : No Allergies No Known Allergies [No Known Allergies*] Allergy (Verified 11/05/23 12:13) Medication List - Last Reviewed 11/05/23 by Hyun Jones acetaminophen-codeine 300-30 mg tabs PO alprazolam 0.5 mg PO TID PRN carisoprodol 350 mg PO BEDTIME PRN cyclobenzaprine 10 mg PO BID dextroamphetamine-amphetamine 10 mg 1 tab PO BID diclofenac sodium 75 mg PO BID hydroxyzine pamoate 50 mg PO Q4H PRN ibuprofen 600 mg PO TID risperidone 0.25 mg PO BID trazodone 50 mg PO BEDTIME PRN Tobacco use date assessed: 11/05/23 Dental Screening Dental Screen Date: 11/05/23 Did you have a dental visit in the last 12 months?: Yes Did you have a dental problem in the last 6 months where you did not have access to dental care?: No Was dental information given to patient?: Patient has dentist HPI HPI Comments History of Present Illness Details New patient Prior PCP:?[facility], Dr. Ruiz Last office visit/CPE: About 3 years Acute issue(s): ADHD, PTSD, anxiety, panic disorder, depression -she is prescribed alprazolam 0.5 mg t.i .d. PRN, dextroamphetamine-amphetamine 10 mg b.i.d., hydroxyzine pamoate 50 mg Q4H PRN, risperidone, trazodone 50 mg PRN at bedtime. However she has only been taking dextroamphetamine-amphetamine 10 mg b.i.d and alprazolam 0.5mg t.i.d. She requests requests refill of risperidone for fluctuating mood, trazadone for sleep, and hydroxyzine for anxiety Chronic neck pain, chronic headache -She is on acetaminophen-codeine 300mg-3 0mg t.i.d, cyclobenzaprine 10mb b.i.d. diclofenac sodium 75mg b.i.d, ibuprofen 600mg t.i.d She notes that she sees a therapist via telehealth weekly but has not had therapy in two months due to high self-pay cost. She plans to resume therapy in a couple of weeks. She also wants to explore affordable psychotherapy options She notes that she saw a psych provider, Serenity Thomas, at [facility], once. She notes that she was told by the provider who said the patient and provider are not a good match. She notes that she was discharged after her first visit. She is followed by [facility], neurology. Her neurologist has been prescribing her psychotropic medications She notes that she generally eats healthy and sleeps well. She exercises routinely She states that she was hospitalized an [facility] for increased anxiety several weeks ago for 5 days. She will sign release for her PCP to obtain record PMHx: chronic headaches, chronic neck pain, shingles, memory loss, ADHD, PTSD, anxiety, depression, panic disorder SurgHx: Tonsillectomy, s/p ventral hernia repair, fracture leg with cabrera insertion FHx: Dad: Alcohol abuse. PGF: Tobacco dependence, lung cancer. PGM: Tobacco dependence, lung cancer SocHx: Smokes 1 ppd x 15 yrs, she has been smoking daily for 30 years. Vapes nicotine occasionally for the past 2 months (she started vaping to help with smoking cessation). Does not drink alcohol; stopped drinking 2.5 years ago. She smokes a couple puffs of cannabis daily and has been smoking for most of her adult life. She has never had a colonoscopy She has never had a mammogram Last pap smear test was 2.5 years ago: normal She was vaccinated for shingles in 2017 Last eye exam at [facility] about 4 months ago. She will sign a release for her PCP to obtain records [facility] Medical History (Updated 11/05/23 @ 14:02 by Mervin Iglesias CNP) Shingles Memory loss Headache Depression PTSD (post-traumatic stress disorder) Anxiety Panic disorder ADHD Hx of fracture of leg Hepatitis C Tobacco dependence Surgical History S/P repair of ventral hernia (04/03/21) History of wisdom tooth extraction History of tonsillectomy Family History (Updated 11/05/23 @ 12:06 by Hyun Jones) Paternal Grandfather Lung cancer Paternal Grandmother Lung cancer Father Alcohol abuse Social History Housing: House Alcohol intake: former Patient Tobacco Use Status: Current everyday Tobacco user Tobacco use type: Cigarette e-Cigarette/Vaping Use: Currently Using Second Hand Smoke Exposure: Yes service: No Current occupational status: employed 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 1. Little interest or pleasure in doing things: several days 2. Feeling down, depressed, or hopeless: several days 3. Trouble falling or staying asleep, or sleeping too much: several days 4. Feeling tired or having little energy: several days 5. Poor appetite or overeating: several days 6. Feeling bad about yourself - or that you are a failure or have let yourself or your family down: several days 7. Trouble concentrating on things, such as reading the newspaper or watching television: several days 8. Moving or speaking so slowly that other people could have noticed. Or the opposite - being so fidgety or restless that you have been moving around a lot more than usual: several days 9. Thoughts that you would be better off or of hurting yourself in some way: not at all Total score: 8 Depression Screening Interpretation: Positive Depression Screening Follow-up: Existing condition, In treatment and Community Mental Health Worker F/U Depression Screening Done: Yes 59310 - PHQ-9 Billing: Yes Source: Developed by Drs. Akil Vasquez, Marysol Hunt, Syed Cosme and colleagues, with an educational mae from [employer] Thrive Questionnaire Date Thrive assessed: 11/05/23 I am a: Patient What is your living situation today?: I have a steady place to live Within the past 12 months, did the food you bought not last and you didn't have the money to get more?: Never true Within the past 12 months, did you worry whether your food would run out before you got money to buy more?: Never true Do you have trouble paying for medicines?: No Do you have trouble getting transportation to medical appointments?: No Do you have trouble paying your heating and electricity bill?: No Do you have trouble taking care of your child, family member or friend?: No Do you have trouble with day-to-day activities such as bathing, preparing meals, shopping, managing finances, etc.?: No Are you currently unemployed and looking for a job?: No Are you interested in more education?: No Please select the resources that you would like help with: None Currently or been in a relationship where the following occur: No concerns reported THRIVE Score: 0 AUDIT C Alcohol Use Questionnaire (AUDIT-C) 1. How often do you have a drink containing alcohol?: Never 3. How often do you have six or more drinks on one occasion?: Never Total Score: 0 POOL-7 AMB Questionnaire POOL-7 Date POOL - 7 assessed: 11/05/23 Feeling nervous, anxious, or on edge: 1 = Several days Not being able to stop or control worryin = Several days Worrying too much about different things: 1 = Several days Trouble relaxin = Several days Being so restless that it is hard to sit still: 1 = Several days Becoming easily annoyed or irritable: 1 = Several days Feeling afraid as if something awful might happen: 1 = Several days Total POOL-7 score (0-4 normal; 5-9 mild; 10-14 moderate; 15-21 severe): 7 Source: Developed by Drs. Akil Vasquez, Marysol Hunt, Syed Cosme and colleagues, with an educational mae from [employer] POOL-7 Assessment Billing POOL-7 Assessment Tool: POOL-7 Assessment 47912 Review of Systems Const Details: Denies chills, Denies fatigue, Denies fever(s), Denies headache(s) and Denies weakness HEENT Denies change in vision, Denies dizziness, Denies headache(s), Denies hearing loss, Denies nasal congestion, Denies sinus pain, Denies sinus pressure and Denies sore throat Card Denies chest pain, Denies lightheadedness, Denies dyspnea and Denies other (palpitations) Resp Denies cough, Denies dyspnea and Denies wheezing GI Denies abdominal pain, Denies melena, Denies hematochezia, Denies change in bowel habits, Denies dyspepsia and Denies nausea Denies hematuria and Denies dysuria Musc Denies abnormal gait, Denies myalgias, Denies arthralgias, Denies numbness and Denies tingling Skin/Breast Denies rash, Denies unusual bruising and Denies wounds Neuro Denies abnormal gait, Denies dizziness, Denies headache(s), Denies memory loss, Denies numbness, Denies Sensory deficit (Neuro), Denies tingling and Denies weakness Psych Reports anxiety, Denies depression and Denies memory loss Endo Denies cold intolerance, Denies fatigue, Denies heat intolerance, Denies polydipsia and Denies polyuria Dejon/Lymph Denies easy bleeding and Denies easy bruising Aller/Immun Denies wheezing Physical exam (Primary Care) Vital Signs: Last Vital Signs Temp 98.0 F 11/05/23 12:18 Pulse 92 11/05/23 12:18 Resp 16 11/05/23 12:18 BP 130/78 11/05/23 12:18 Pulse Ox 96 11/05/23 12:18 Oxygen Delivery Method Room Air 11/05/23 12:18 BMI result Body Mass Index 18.6 Tobacco/Smoking Status: Tobacco use Status Tobacco use date assessed 11/05/23 11/05/23 12:06 Patient Tobacco Use Status Current everyday Tobacco 11/05/23 11:54 Tobacco use type Cigarette 11/05/23 11:54 e-Cigarette/Vaping Use Currently Using 11/05/23 12:06 PHQ-9: PHQ-9 Score PHQ-9: Total score 8 11/05/23 12:17 Depression Screening Interpretation: Positive Depression Screening Follow-up: Existing condition, In treatment and Community Mental Health Worker F/U Thrive Assessment: Date of Thrive Assessment Date Thrive assessed 11/05/23 11/05/23 12:17 Currently or been in a relationship where the following occur: No concerns reported Const Other: General: no acute distress, well developed, alert and awake Nutritional Appearance: well nourished Orientation/consciousness: patient oriented x3 HENMT Head: Yes normocephalic and Yes atraumatic Ears: hearing grossly normal bilaterally and TM's normal bilaterally General nose exam: Normal external nose present and Normal nares present Mouth: Normal oral and palatal mucosa present and moist mucous membranes Teeth and gingiva: dentition normal Throat: Yes oropharynx normal Eyes Pupils: Equal, round and reactive pupils present and Pupil accommodation reflex normal EOM: EOMs intact bilaterally Neck Neck: Yes normal visual inspection, Yes no lymphadenopathy and Yes trachea midline Thyroid: Thyroid normal Carotids: no bruits Lymphatic: no lymphadenopathy noted Chest Chest palpation & inspection: normal inspection of the chest Resp Effort & Inspection: normal respiratory effort Auscultation: clear to auscultation bilaterally Cardio Rate: regular rate Rhythm: regular rhythm Heart sounds: S1 normal heart sound present, S2 normal heart sound present, no gallops, no murmurs and no rubs Bruits: no abdominal aortic bruits and no carotid bruits GI Palpation (GI): No Abdominal aortic bruit present, Soft to palpation, nontender, No hepatosplenomegaly present and No Rebound tenderness present Auscultation: normal bowel sounds General: Yes no CVA tenderness Back/Spine/Pelvis Back: no CVA tenderness Cervical Spine: cervical ROM normal and No Cervical spine tenderness Thoracic/Lumbar Spine: thoraco-lumbar ROM normal, No pain with thoraco-lumbar ROM, No thoracic spinal tenderness and No lumbar spinal tenderness Skin General: warm and dry. Normal skin color. Normal skin turgor Lesions: no lesions Rashes: no rashes Trauma: no lacerations or abrasions Wounds: no wounds Nails: normal Neuro General: patient oriented x3, gait normal and CN's II-XI intact bilaterally Cranial nerves: Yes Equal, round and reactive pupils present Cognition (Neuro): normal cognition Gait exam (Neuro): Normal gait present Motor exam (neuro): 5/5 motor strength present throughout Sensory Exam: No Sensory deficit (Neuro) Deep tendon reflexes (DTR's): Right patellar reflex intensity grade: 2+ and Left patellar reflex intensity grade: 2+ Extrem General: Yes normal to inspection, No edema and No calf tenderness Psych Appearance: grossly normal Affect: normal affect Attitude: cooperative Thought process: Normal thought process present Assessment and Plan Assessment & Plan (1) Normal physical examination, routine: Code(s): Z00.00 - Encounter for general adult medical examination without abnormal findings Plan: No significant physical restrictions or limitations noted Continue current treatment regimen Healthy diet and routine exercise encouraged Advised to get lab work done and follow-up in 1 month for labs review, ADHD, anxiety, and depression Verbalized understanding and agreed with the plan (2) Chronic headache: Code(s): R51.9 - Headache, unspecified; G89.29 - Other chronic pain Plan: Continue current treatment regimen Follow-up with Neurology as planned Return with worsening or new symptoms Verbalized understanding and agreed with the treatment plan (3) Chronic neck pain: Code(s): M54.2 - Cervicalgia; G89.29 - Other chronic pain Plan: Plan as above (4) Anxiety: Code(s): F41.9 - Anxiety disorder, unspecified Plan: PHQ-9 and POOL-7 scores revealed mild depression and anxiety Continue current treatment regimen Trazodone, risperidone, and hydroxyzine refill as requested Routine exercise encouraged She met with the [facility] who will refer her to a therapist Referred to [facility] psychiatric outpatient consultation service Follow-up in 1 month or sooner with worsening or new symptoms Verbalized understanding and agreed with the treatment plan (5) Depression: Code(s): F32.A - Depression, unspecified Plan: Plan as above (6) ADHD: Code(s): F90.9 - Attention-deficit hyperactivity disorder, unspecified type Plan: Plan as above (7) PTSD (post-traumatic stress disorder): Code(s): F43.10 - Post-traumatic stress disorder, unspecified Plan: Plan as above (8) Smoking trying to quit: Code(s): Z72.0 - Tobacco use Plan: Smokes 1 ppd x 15 yrs, she has been smoking daily for 30 years. She has been vaping on and off for the past 2 months in an attempt to reduce smoking. She tried medication for smoking cessation in the past and is willing to try nicotine patch. Instructed on the health risks and complications of cigarette smoking and nicotine vaping and encouraged to stop smoking and vaping Nicotine patch ordered. Advised to use as prescribed Follow-up with symptoms or concerns Verbalized understanding and agreed with the plan (9) Engages in vaping: Code(s): Z72.89 - Other problems related to lifestyle Plan: Plan as above (10) Colon cancer screening: Code(s): Z12.11 - Encounter for screening for malignant neoplasm of colon Plan: She has never had a colonoscopy Referred to [facility] gastroenterology for a colonoscopy (11) Pap smear for cervical cancer screening: Code(s): Z12.4 - Encounter for screening for malignant neoplasm of cervix Plan: Last pap smear test was 2.5 years ago: normal Referred to [facility] fur tanner (12) Breast cancer screening by mammogram: Code(s): Z12.31 - Encounter for screening mammogram for malignant neoplasm of breast Plan: She has never had a mammogram Mammogram ordered (13) Laboratory tests ordered as part of a complete physical exam (CPE): Code(s): Z00.00 - Encounter for general adult medical examination without abnormal findings Plan: Fasting labs ordered as part of a complete physical exam. Advised to fast for at least 10 hours before getting labs drawn. May drink water Verbalized understanding and agreed with treatment plan. Orders: Orders Lipid Panel Today Z00.00 - Encounter for general adult medical examination without abnormal findings UA CC w/rflx Micro + Cult Today Z00.00 - Encounter for general adult medical examination without abnormal findings Complete Blood Count Auto Diff Today Z00.00 - Encounter for general adult medical examination without abnormal findings Comprehensive [place]. Panel Fast Today Z00.00 - Encounter for general adult medical examination without abnormal findings Microalbumin, Random (w Creat) Today Z00.00 - Encounter for general adult medical examination without abnormal findings TSH reflex Free T4 Today Z00.00 - Encounter for general adult medical examination without abnormal findings MM screening mammo BI Today Z12.31 - Encounter for screening mammogram for malignant neoplasm of breast Referrals Psychiatry Outpatient Consultation Service F32.A - Depression, unspecified, F41.9 - Anxiety disorder, unspecified, F90.9 - Attention-deficit hyperactivity disorder, unspecified type Gastroenterology Referral Z12.11 - Encounter for screening for malignant neoplasm of colon TENTER FRAME BACK TENDER Referral Z12.4 - Encounter for screening for malignant neoplasm of cervix Medications: New nicotine Apply 21 mg patch q.d. x6 weeks, then apply 14 mg patch q.d. x2 weeks, then apply 7 mg patch q.d. x2 weeks. Stop cigarette use at treatment onset. 1 patch transdermal DAILY 10 weeks 70 ea 0RF trazodone 50 mg PO BEDTIME 30 days PRN 30 tabs 1RF insomnia hydroxyzine pamoate 50 mg PO TID PRN 90 caps 1RF anxiety risperidone 0.25 mg PO BID 30 days 60 tabs 1RF Coding Level of Care Code New Pt Level 4 (27745) New Pt Prev Care 40-64y(24028) Diagnoses Normal physical examination, routine Z00.00 Chronic headache R51.9; G89.29 Chronic neck pain M54.2; G89.29 Anxiety F41.9 Depression F32.A ADHD F90.9 PTSD (post-traumatic stress disorder) F43.10 Smoking trying to quit Z72.0 Engages in vaping Z72.89 Colon cancer screening Z12.11 Pap smear for cervical cancer screening Z12.4 Breast cancer screening by mammogram Z12.31 Laboratory tests ordered as part of a complete physical exam (CPE) Z00.00 Additional Codes POOL-7 Assessment Billing - POOL-7 Assessment Tool: POOL-7 Assessment 33361 ([id number])
[2023-11-05 12:18] VITALS: BP 130/78; PULSE 92; RESP 16; TEMP 36.7; O2SAT 96; BMI 18.6
== END 2023-11-05 13:14 | disposition home or self-care (01) ==
LOC: HO.HMGFM 11:43
PROVIDERS: PCP Nurse Practitioner Family; Visit Provider Nurse Practitioner Family
DX: Z00.00 Encounter for general adult medical examination without abnormal findings (principal); M54.2 Cervicalgia; F17.210 Nicotine dependence, cigarettes, uncomplicated; R51.9 Headache, unspecified; G89.29 Other chronic pain; F41.9 Anxiety disorder, unspecified; F32.A Depression, unspecified; F90.9 Attention-deficit hyperactivity disorder, unspecified type; F43.10 Post-traumatic stress disorder, unspecified
CPT/HCPCS: 99213; 99396

== ENCOUNTER 2023-12-25 06:17 | Inpatient (IN) | payer OTHER, SELFPAY ==
[2023-12-25 06:22] VITALS: BP 125/95; BP 144/78; PULSE 81; PULSE 82; RESP 18; TEMP 36.3; O2SAT 97; O2SAT 98; BMI 19.9
--- NOTE | 2023-12-25 06:40 | PC.NURSE ---
Belongings sent to [facility]
--- NOTE | 2023-12-25 06:43 | MHC.EDTECH ---
PATIENT CHANGED OVER BELONGINGS IN C4
--- NOTE | 2023-12-25 07:09 | ED_ITS ---
HPI - Psych General Chief Complaint: Psychiatric Symptoms Stated Complaint: voluntary mental health eval/ behavioral Time Seen by Provider: 12/25/23 07:03 Source: patient Mode of arrival: EMS Limitations: no limitations History of Present Illness ED Provider: Dr. Louis Hall HPI Narrative: 53-year-old female with a history of depression, PTSD, anxiety/panic disorder, ADHD, hepatitis-C who was brought to emergency department by ambulance for evaluation of anxiety and paranoid ideation with auditory hallucinations and visual hallucinations. Patient states that she has been anxious and has been off her Xanax for at least 3 weeks. She states that she was hospitalized at [facility] several months ago and was started on hydroxyzine and 2 other medications which she was not been taking. She states that earlier this morning she was pacing around her living room and was not feeling safe at home. She told me that she was having family issues and her son he was to go into the witnessed protection program, she told me that she needs to talk to the FBI and that she felt unsafe and was going to go to the neighbor's home. She also states that she was hearing voices since the summertime but could not tell me what the voices her saying. She also felt like someone was under the floor listening to them. EMS and police were at the patient's house at 03:00 house and she initially refused to go to the hospital. [facility] clinician did evaluate the patient and was able to convince the patient to come to the hospital voluntarily for evaluation. Patient told me that she is feeling anxious but is not suicidal or homicidal. She states she will voluntary only talk to the care team. The patient does vape nicotine products multiple times a day. She also smokes marijuana multiple times a day. She denies any other drug use. She states that she was prescribed Tylenol with codeine #3 for skull fracture and degenerative joint/disc disease C5 through C7. Related Data Home Medications ?Medication ?Instructions ?Recorded ?Confirmed alprazolam 0.5 mg tablet 0.5 mg PO TID PRN Anxiety 02/25/21 12/25/23 dextroamphetamine-amphetamine 10 1 tab PO TID 02/25/21 12/25/23 mg tablet cyclobenzaprine 10 mg tablet 10 mg PO BID 11/05/23 12/25/23 diclofenac sodium 75 mg 75 mg PO BID 11/05/23 12/25/23 tablet,delayed release acetaminophen 300 mg-codeine 30 mg 2 tab PO Q12H PRN neck pain 12/25/23 12/25/23 tablet ibuprofen 600 mg tablet 600 mg PO TID PRN Pain, Moderate 12/25/23 12/25/23 magnesium 200 mg tablet 200 mg PO DAILY 12/25/23 12/25/23 Previous Rx's ?Medication ?Instructions ?Recorded nicotine 21 mg/24 hr daily 1 patch transdermal DAILY 10 weeks 11/05/23 transdermal patch #70 ea trazodone 50 mg tablet 50 mg PO BEDTIME PRN insomnia 90 11/27/23 days #90 tabs Allergies Allergy/AdvReac Type Severity Reaction Status Date / Time No Known Allergies Allergy Verified 12/25/23 06:25 [No Known Allergies*] Review of Systems 2 Review of Systems: Yes all other systems are reviewed and are negative [facility] Past Medical History Medical History (Updated 12/25/23 @ 17:46 by Louis Hall MD) Shingles Memory loss Headache Depression PTSD (post-traumatic stress disorder) Anxiety Panic disorder ADHD Hx of fracture of leg Hepatitis C Tobacco dependence Surgical History S/P repair of ventral hernia (04/03/21) History of wisdom tooth extraction History of tonsillectomy Family History Family History (Updated 11/05/23 @ 12:06 by Hyun Jones MA) Paternal Grandfather Lung cancer Paternal Grandmother Lung cancer Father Alcohol abuse Social History Social History Housing: House Alcohol intake: former Patient Tobacco Use Status: Current everyday Tobacco user Tobacco use type: Cigarette Smoked in Last 30 Days: Yes e-Cigarette/Vaping Use: Currently Using Second Hand Smoke Exposure: Yes Substance Use Type: Marijuana Advance Directives: No Advance Directives Information Provided: Yes Do you have a plan to hurt others: No Plan service: No Current occupational status: employed 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 Current occupational exposures/hazards: No Cognitive needs: No Hearing needs: No Vision needs: No Physical Exam 2 Vital Signs: Vital Signs: Last Vital Signs Temp 98.9 F 12/25/23 15:11 Pulse 72 12/25/23 15:11 Resp 16 12/25/23 15:11 BP 122/77 12/25/23 15:11 Pulse Ox 96 12/25/23 15:11 O2 Del Method Room Air 12/25/23 15:11 BMI result Body Mass Index 19.9 Vital signs were normal Exam: General: Awake, alert appears anxious, answers all questions appropriately Head: Normocephalic, atraumatic EENT: PERRL, Lids normal, sclera normal, conjunctiva normal, nose normal , ears normal, throat without erythema or exudates Neck: Supple, no adenopathy Lung: breath sounds symmetric, no wheezing, rales or rhonchi Chest: symmetric movement, nontender Heart: regular rate and rhythm, normal S1, S2 no murmurs or rubs Abdomen: soft, non-tender, nondistended, normal bowel sounds Back: no vertebral tenderness, no CVAT Extremities: no deformities, moves all extremities symmetrically Neuro: Awake, alert, oriented, normal speech, cranial nerves intact, moves all extremities symmetrically Psych: Pleasant, cooperative, appears anxious Medications Administered Discontinued Medications Generic Name Dose Route Start Last Admin Trade Name Baltaq PRN Reason Stop Dose Admin Acetaminophen/Codeine Phosphate 2 tab 12/25/23 14:10 12/25/23 14:20 Acetaminophen/Codeine 300-30mg Tablet PO 12/25/23 14:11 2 tab ONCE ONE Administration Ibuprofen 600 mg 12/25/23 14:10 12/25/23 14:20 Ibuprofen 600 Mg Tablet PO 12/25/23 14:11 600 mg ONCE STA Administration Lorazepam 1 mg 12/25/23 07:43 12/25/23 07:51 Lorazepam 1 Mg Tablet PO 12/25/23 07:44 1 mg ONCE ONE Administration Lorazepam 1 mg 12/25/23 14:10 12/25/23 14:20 Lorazepam 1 Mg Tablet PO 12/25/23 14:11 1 mg ONCE ONE Administration Medical Decision Making Medical Decision Making MDM Narrative: 53-year-old female with a history of depression, PTSD, anxiety/panic disorder, ADHD, hepatitis-C who was brought to emergency department by ambulance for evaluation of anxiety and paranoid ideation with auditory hallucinations and visual hallucinations. Patient states that she has been anxious and has been off her Xanax for at least 3 weeks. She states that she was hospitalized at [facility] several months ago and was started on hydroxyzine and 2 other medications which she was not been taking. This morning she was feeling anxious, paranoid, states she needs to talk to the FBI about getting her son into the witnessed protraction program and felt unsafe at home. Patient was evaluated by [facility] clinician in her home and patient came voluntarily to the emergency department for evaluation. She denied being suicidal or homicidal. Vital signs were normal. Exam is consistent with anxiety otherwise unremarkable Differential diagnosis: ?Includes but is not limited to paranoid ideation, auditory/visual hallucinations, noncompliance with medications, polysubstance use disorder, electrolyte abnormalities, thyroid disease, anemia Following evaluation was ordered: CBC, CMP, quantitative beta-hCG, acetaminophen, salicylate, ethanol level, TSH with reflex T4, urinalysis Patient was initially treated with the following: Ativan 1 mg orally Course: 08:11 My interpretation patient's laboratory evaluation is as follows: CBC was normal. CMP was normal. Beta-hCG was negative. Urinalysis negative. Urine tox screen positive for marijuana only. Ethanol was below detectable limits. Salicylates and acetaminophen level was below detectable limits. TSH with reflex T4 pending This time, the patient is medically cleared for evaluation by care team. 17:45 Patient was accepted onto the psychiatric service and will be admitted for further treatment. Lab Data 12/25/23 07:27 12/25/23 07:27 Labs: Lab Results 12/25/23 12/25/23 Range/Units 07:27 07:47 WBC 9.1 (4.8-10.8) X10*3/uL RBC 4.65 (4.20-5.50) X10*6/uL Hgb 13.7 (12.0-16.0) g/dl Hct 39.5 (37.0-47.0) % MCV 84.9 (80.0-98.0) fL MCH 29.5 (27.0-33.0) pg MCHC 34.7 (31.0-35.0) g/dl RDW 12.3 (11.0-16.0) % Plt Count 277 (160-400) X10*3/uL MPV 8.5 L (9.4-12.3) fL Immature Gran % (Auto) 0.2 (0.0-0.4) % Neut % (Auto) 59.6 (45-73) % Lymph % (Auto) 31.5 (20-40) % Anson % (Auto) 6.4 (2-11) % Eos % (Auto) 2.0 (0-4) % Baso % (Auto) 0.3 (0-2) % Lymph # (Auto) 2.9 (1.2-4.9) X10*3/uL Anson # (Auto) 0.6 (0.1-1.2) X10*3/uL Eos # (Auto) 0.2 (0.0-0.4) X10*3/uL Baso # (Auto) 0.0 (0.0-0.2) X10*3/uL Abs Immat Gran (auto) 0.02 (0.00-0.03) X10*3/uL Absolute Neuts (auto) 5.4 (2.0-8.3) x10*3/uL Absolute Nucleated RBC 0.000 (0.0-0.012) X10*3/uL Nucleated RBC % (auto) 0.0 (0.0-0.2) /100WBC Sodium 139 (135-145) mmol/L Potassium 4.1 (3.3-5.1) mmol/L Chloride 103 (96-108) mmol/L Carbon Dioxide 27 (22-29) mmol/L Anion Gap 13 (12-20) BUN 16 (9-16) mg/dL Creatinine 0.73 (0.5-1.4) mg/dL Estim Creat Clear Calc 85.4 Estimated GFR > 60 Random Glucose 114 (60-115) mg/dL Calcium 9.9 (8.4-10.2) mg/dL Total Bilirubin 1.0 (0.0-1.0) mg/dL AST 26 (5-31) U/L ALT 31 (0-31) U/L Alkaline Phosphatase 55 (39-117) U/L Total Protein 7.0 (6.5-8.0) g/dL Albumin 4.5 (3.5-5.0) g/dL TSH 1.43 (0.32-4.0) uIU/mL Beta HCG, Quant 3 mIU/mL Urine Color Yellow Urine Appearance Clear Urine pH 5.5 (5.0-9.0) Ur Specific [place] 1.020 (1.005-1.025) Urine Protein Negative (Neg-Trace) mg/dL Urine Glucose (UA) Negative (Negative) mg/dL Urine Ketones Negative (Negative) mg/dL Urine Blood Negative (Negative) Urine Nitrite Negative (Negative) Ur Leukocyte Esterase Negative (Negative) Salicylates < 5.0 L (15-30) mg/dL Urine Opiates Screen Not Detected (Not Detect) Ur Buprenorphine Scrn Not Detected (Not Detect) ng/mL Ur Oxycodone Screen Not Detected (Not Detect) ng/mL Urine Methadone Screen Not Detected (Not Detect) ng/mL Urine Fentanyl Screen Not Detected (Not Detect) Acetaminophen < 3 (<30) mcg/mL Ur Barbiturates Screen Not Detected (Not Detect) Ur Phencyclidine Scrn Not Detected (Not Detect) Ur Amphetamines Screen Not Detected (Not Detect) U Benzodiazepines Scrn Not Detected (Not Detect) Urine Cocaine Screen Not Detected (Not Detect) U Marijuana (THC) Screen POSITIVE H (Not Detect) Ethyl Alcohol < 10 mg/dL Discharge Plan Discharge Patient Disposition: Admitted As Inpatient Prescriptions: No Action trazodone 50 mg tablet 50 mg PO BEDTIME PRN (Reason: insomnia) 90 Days Qty: 90 1RF acetaminophen-codeine 300-30 mg tablet 2 tab PO Q12H PRN (Reason: neck pain) ibuprofen [Motrin] 600 mg Tablet 600 mg PO TID PRN (Reason: Pain, Moderate) magnesium 200 mg Tablet 200 mg PO DAILY diclofenac sodium 75 mg tablet,delayed release (DR/EC) 75 mg PO BID cyclobenzaprine 10 mg tablet 10 mg PO BID nicotine 21 mg/24 hr patch 24 hour 1 patch transdermal DAILY 70 Days Qty: 70 0RF Rx Instructions: Apply 21 mg patch q.d. x6 weeks, then apply 14 mg patch q.d. x2 weeks, then apply 7 mg patch q.d. x2 weeks. Stop cigarette use at treatment onset. alprazolam 0.5 mg tablet 0.5 mg PO TID PRN (Reason: Anxiety) dextroamphetamine-amphetamine 10 mg tablet 1 tab PO TID Interventions: [place]-Suicide Risk Severity Scale Last Done: 12/25/23 11:36 Print Language: Malian
[2023-12-25 07:31] LABS: MANUAL DIFF FLAG NO
[2023-12-25 07:37] LABS: Basophils Percent Auto 0.3 % (0-2); Eosinophils Absolute Auto 0.2 X10*3/uL (0.0-0.4); Hematocrit 39.5 % (37.0-47.0); Hemoglobin 13.7 g/dl (12.0-16.0); Imm Gran Abs Auto 0.02 X10*3/uL (0.00-0.03); Imm Gran Pct Auto 0.2 % (0.0-0.4); Lymphocytes Absolute Auto 2.9 X10*3/uL (1.2-4.9); Lymphocytes Percent Auto 31.5 % (20-40); Mean Corpuscular HGB Conc 34.7 g/dl (31.0-35.0); Mean Corpuscular Hemoglobin 29.5 pg (27.0-33.0); Mean Corpuscular Volume 84.9 fL (80.0-98.0); Mean Platelet Volume 8.5 fL (9.4-12.3); Monocytes Absolute Auto 0.6 X10*3/uL (0.1-1.2); Monocytes Percent Auto 6.4 % (2-11); Neutrophils Absolute Auto 5.4 x10*3/uL (2.0-8.3); Neutrophils Percent Auto 59.6 % (45-73); Platelet Count 277 X10*3/uL (160-400); Red Blood Count 4.65 X10*6/uL (4.20-5.50); Red Cell Distribution Width 12.3 % (11.0-16.0); White Blood Count 9.1 X10*3/uL (4.8-10.8)
[2023-12-25 07:45] LABS: Ethanol < 10 mg/dL
[2023-12-25 07:46] LABS: Acetaminophen LAB < 3 mcg/mL (<30); Salicylate < 5.0 mg/dL (15-30)
[2023-12-25] MEDS: LORazepam 1 MG TABLET PO ×2 (07:51→14:20)
[2023-12-25 07:53] LABS: Alanine Aminotransferase 31 U/L (0-31); Albumin Level 4.5 g/dL (3.5-5.0); Alkaline Phosphatase 55 U/L (39-117); Anion Gap 13 (12-20); Aspartate Amino Transferase 26 U/L (5-31); Blood Urea Nitrogen 16 mg/dL (9-16); Calcium 9.9 mg/dL (8.4-10.2); Carbon Dioxide 27 mmol/L (22-29); Chloride 103 mmol/L (96-108); Creatinine Clr Calc Pharmacy 85.4; Estimated Glomerular Filt Rate > 60; Glucose Random 114 mg/dL (60-115); HCG Quantitative 3 mIU/mL; Potassium 4.1 mmol/L (3.3-5.1); Sodium 139 mmol/L (135-145)
--- NOTE | 2023-12-25 07:56 | PC.NURSE ---
labs obtained and sent, ambulated to the bathroom with steady gait to provide urine sample. awake, eating breakfast. medicated per the MAR. patient is calm and cooperative currently, awaiting care team evaluation.
[2023-12-25 08:01] LABS: Appearance Urine Clear; Color Urine Yellow; Glucose Urine UA Negative (Negative); Leukocyte Esterase Urine Negative (Negative); Nitrite Urine Negative (Negative); PH 5.5 (5.0-9.0); Urine Blood Negative (Negative); Urine Ketones Negative (Negative); Urine Protein Negative (Neg-Trace)
[2023-12-25 08:02] LABS: Amphetamine Screen Urine Not Detected (Not Detect); Barbiturates, Urine Not Detected (Not Detect); Benzodiazepines Screen Urine Not Detected (Not Detect); Buprenorphine Scr Not Detected (Not Detect); Cannabinoid Screen Urine POSITIVE (Not Detect); Cocaine Screen Urine Not Detected (Not Detect); Fentanyl, urine Not Detected (Not Detect); Methadone Screen, Urine Not Detected (Not Detect); Opiate Screen Urine Not Detected (Not Detect); Oxycodone Screen Urine Not Detected (Not Detect); Phencyclidine Screen Urine Not Detected (Not Detect)
[2023-12-25 08:43] VITALS: BP 111/73; PULSE 72; RESP 16; TEMP 36.6; O2SAT 98
[2023-12-25 08:59] LABS: TSH reflex Free T4 1.43 uIU/mL (0.32-4.0)
--- NOTE | 2023-12-25 11:35 | PC.NURSE ---
continues to rest quietly in room, awaiting care team evaluation. no signs/symptoms of distress noted. ambulates independently to the bathroom
[2023-12-25] MEDS: Ibuprofen 600 MG TABLET PO ×2 (14:20→17:42)
[2023-12-25] MEDS: Acetaminophen/Codeine 300-30mg Tablet 2 TAB PO ×2 (14:20→17:53)
[2023-12-25 15:11] VITALS: BP 122/77; PULSE 72; RESP 16; TEMP 37.2; O2SAT 96
[2023-12-25] MEDS: Nicotine 21 MG PATCH.TD24 TRANSDERMA (17:42)
[2023-12-25] MEDS: ALPRAZolam 0.5 MG TABLET PO (17:53)
[2023-12-25 19:39] VITALS: BP 117/82; PULSE 74; RESP 14; TEMP 36.8; O2SAT 100
[2023-12-25] MEDS: Cyclobenzaprine HCl 10 MG TABLET PO (21:28)
[2023-12-25] MEDS: Diclofenac Sodium Delayed Rel 75 MG TABLET.DR PO (21:29)
[2023-12-26 06:30] VITALS: BP 116/86; PULSE 76; RESP 18; TEMP 36.9; O2SAT 96
[2023-12-26] MEDS: Ibuprofen 600 MG TABLET PO ×2 (06:33→14:46)
[2023-12-26] MEDS: ALPRAZolam 0.5 MG TABLET PO ×4 (06:34→22:38)
--- NOTE | 2023-12-26 07:07 | PC.NURSE ---
Assumed care of patient at 0645, patient appears to be in no apparent distress this am, calm and cooperative, watching TV, offers no complaints to this RN at this time. Continue plan of care for inpatient bedsearch
[2023-12-26] MEDS: Magnesium Oxide 400 MG TABLET 200 MG PO (08:14)
[2023-12-26] MEDS: Cyclobenzaprine HCl 10 MG TABLET PO ×2 (08:14→22:39)
[2023-12-26] MEDS: Amphetamine Mixed Salts 10 MG TABLET PO (08:15)
[2023-12-26] MEDS: Acetaminophen/Codeine 300-30mg Tablet 2 TAB PO ×3 (08:57→22:39)
[2023-12-26] MEDS: Diclofenac Sodium Delayed Rel 75 MG TABLET.DR PO ×2 (11:22→22:40)
--- NOTE | 2023-12-26 11:59 | PHA.MEDREC ---
Pharmacy Consult ? Medication Reconciliation Pharmacy has completed the medication reconciliation. Spoke with patient in [facility]. Patient states she only takes medications prescribed by Dr. Carey. She does not take medications prescribed by Dr. Iglesias from [facility]. She states she was discharged 4 months ago and does not take the hydroxyzine or risperidone because it makes her sick. She tried taking another risperidone tablet this week but it made her sick again. She takes Adderall up to three times daily if she needs it but does not take after 4 pm. She takes trazodone PRN. Patient states she has not taken her alprazolam in 3 weeks. Patient has both diclofenac and ibuprofen at home but advised to not take together. She usually takes diclofenac. Left Hydroxyzine and risperidone on med rec but unconfirmed.
--- NOTE | 2023-12-26 13:28 | PC.NURSE ---
pt is requesting not to call her mother who lives in [place] if any questions arise because she is elderly, if need be can call her son Darrion Fulton IV [phone]
--- NOTE | 2023-12-26 16:39 | PC.NURSE ---
Pt reporting agitation secondary to CARE team clinician not following up like she was supposed to . This RN informed HANNAH Wild know that the patient was looking to speak with her. after a conversation with Torri, patient exited room, frustrated with disposition of going inpatient. patient reports she was expecting a respite bedsearch. Patient did voluntarily sign CV with this RN
[2023-12-26 17:05] VITALS: BP 140/88; PULSE 79; TEMP 36.4; O2SAT 97
[2023-12-26 17:10] VITALS: BMI 19.6
--- NOTE | 2023-12-26 18:50 | PC.ADMIT ---
Ms. Mandi Fulton is a 53 year old female admitted to room 516-2 from the pod at 5pm on a CV for disorganization, erratic behavior and paranoia. She is also highly anxious. Cooperative with skin/ safety checks vitals, height and weight, which were unremarkable. She was placed on 15 minute checks. Per report from pod RN, the patient was brought to the ER via ambulance on a section 12 after her 19 year old son called to report erratic and paranoid behavior which included, but is not limited to multiple harassments of her neighbors, belief that the FBI is after her and belief that people are living under the floors in her home. 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 She is a former cigarette smoker/ current nicotine vaper, and reports vaping the equivalent of a half pack of cigarettes per day. She is aware she will be receiving a cessation consult. Mandi declined the influenza vaccine.
[2023-12-26] MEDS: Nicotine Polacrilex 2 MG GUM 4 MG BUCCAL ×2 (19:02→22:38)
[2023-12-26 20:00] VITALS: BP 142/87; PULSE 85; RESP 20; TEMP 35.9; O2SAT 97
[2023-12-26] MEDS: OLANZapine 5 MG TABLET PO (22:40)
[2023-12-26] MEDS: traZODone HCL 50 MG TABLET PO (22:40)
[2023-12-26] MEDS: hydrOXYzine HCL 25 MG TABLET PO (22:41)
[2023-12-27] MEDS: Ibuprofen 600 MG TABLET PO (05:45)
[2023-12-27] MEDS: OLANZapine 5 MG TABLET PO ×2 (05:45→11:47)
[2023-12-27] MEDS: hydrOXYzine HCL 25 MG TABLET PO (05:45)
[2023-12-27 08:52] VITALS: BP 98/57; PULSE 79; TEMP 36.4; O2SAT 97
[2023-12-27] MEDS: Diclofenac Sodium Delayed Rel 75 MG TABLET.DR PO ×2 (08:55→20:56)
[2023-12-27] MEDS: Magnesium Oxide 400 MG TABLET 200 MG PO (08:56)
[2023-12-27] MEDS: Cyclobenzaprine HCl 10 MG TABLET PO ×2 (08:57→20:55)
[2023-12-27] MEDS: Amphetamine Mixed Salts 10 MG TABLET PO ×2 (08:57→13:30)
[2023-12-27] MEDS: Nicotine 21 MG PATCH.TD24 TRANSDERMA (08:58)
[2023-12-27] MEDS: ALPRAZolam 0.5 MG TABLET PO ×2 (09:01→13:30)
[2023-12-27] MEDS: Acetaminophen/Codeine 300-30mg Tablet 2 TAB PO ×2 (09:53→15:43)
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
[2023-12-27] MEDS: Nicotine Polacrilex 2 MG GUM 4 MG BUCCAL ×2 (10:39→18:24)
[2023-12-27] MEDS: Cariprazine HCl 1.5 MG CAPSULE PO (15:43)
[2023-12-27 20:00] VITALS: BP 139/80; PULSE 98; RESP 15; TEMP 36.3; O2SAT 98
[2023-12-27] MEDS: traZODone HCL 50 MG TABLET PO (20:56)
[2023-12-28] MEDS: Ibuprofen 600 MG TABLET PO ×3 (02:11→19:01)
[2023-12-28] MEDS: traZODone HCL 50 MG TABLET PO ×2 (02:12→23:09)
[2023-12-28] MEDS: ALPRAZolam 0.5 MG TABLET PO ×4 (02:16→23:09)
[2023-12-28] MEDS: Acetaminophen/Codeine 300-30mg Tablet 2 TAB PO ×3 (07:56→23:11)
[2023-12-28 08:15] VITALS: BP 122/72; PULSE 64; TEMP 36.6; O2SAT 98
[2023-12-28] MEDS: Amphetamine Mixed Salts 10 MG TABLET PO (08:51)
[2023-12-28] MEDS: Cyclobenzaprine HCl 10 MG TABLET PO ×2 (08:52→20:45)
[2023-12-28] MEDS: Diclofenac Sodium Delayed Rel 75 MG TABLET.DR PO ×2 (08:52→20:59)
[2023-12-28] MEDS: Magnesium Oxide 400 MG TABLET 200 MG PO (08:53)
[2023-12-28] MEDS: Cariprazine HCl 1.5 MG CAPSULE PO (08:53)
[2023-12-28] MEDS: Nicotine 21 MG PATCH.TD24 TRANSDERMA (08:54)
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
[2023-12-28] MEDS: Dextroamphetamine/Amphetamine XR 10 MG CAP.ER.24H 30 MG PO (12:32)
[2023-12-28] MEDS: Nicotine Polacrilex 2 MG GUM 4 MG BUCCAL ×3 (16:39→23:58)
[2023-12-28 20:00] VITALS: BP 151/56; PULSE 87; TEMP 36.3; O2SAT 97
[2023-12-29] MEDS: traZODone HCL 50 MG TABLET PO ×3 (00:02→23:50)
[2023-12-29] MEDS: Ibuprofen 600 MG TABLET PO ×3 (06:42→22:30)
[2023-12-29] MEDS: hydrOXYzine HCL 25 MG TABLET PO (06:46)
[2023-12-29 08:00] VITALS: BP 136/67; PULSE 88; RESP 18; TEMP 36.2; O2SAT 96
[2023-12-29] MEDS: Dextroamphetamine/Amphetamine XR 10 MG CAP.ER.24H 30 MG PO (08:21)
[2023-12-29] MEDS: Cyclobenzaprine HCl 10 MG TABLET PO ×2 (08:21→20:04)
[2023-12-29] MEDS: Cariprazine HCl 3 MG CAPSULE PO (08:21)
[2023-12-29] MEDS: Diclofenac Sodium Delayed Rel 75 MG TABLET.DR PO ×2 (08:21→20:05)
[2023-12-29] MEDS: Magnesium Oxide 400 MG TABLET 200 MG PO (08:21)
[2023-12-29] MEDS: Acetaminophen/Codeine 300-30mg Tablet 2 TAB PO ×3 (08:25→22:31)
[2023-12-29] MEDS: ALPRAZolam 0.5 MG TABLET PO ×3 (08:26→22:31)
[2023-12-29] MEDS: Nicotine 21 MG PATCH.TD24 TRANSDERMA (08:52)
[2023-12-29] MEDS: Nicotine Polacrilex 2 MG GUM 4 MG BUCCAL ×5 (08:52→22:48)
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
[2023-12-29] MEDS: Amphetamine Mixed Salts 10 MG TABLET PO (14:30)
[2023-12-29 19:56] VITALS: BP 136/93; PULSE 119; RESP 18; TEMP 36.4; O2SAT 97
[2023-12-30] MEDS: Acetaminophen 325 MG TABLET 650 MG PO (02:03)
[2023-12-30] MEDS: Nicotine Polacrilex 2 MG GUM 4 MG BUCCAL ×3 (02:04→11:54)
[2023-12-30 08:00] VITALS: BP 129/89; PULSE 91; RESP 18; TEMP 36.3; O2SAT 95
[2023-12-30] MEDS: Cyclobenzaprine HCl 10 MG TABLET PO (08:16)
[2023-12-30] MEDS: Dextroamphetamine/Amphetamine XR 10 MG CAP.ER.24H 30 MG PO (08:16)
[2023-12-30] MEDS: Cariprazine HCl 3 MG CAPSULE PO (08:16)
[2023-12-30] MEDS: Diclofenac Sodium Delayed Rel 75 MG TABLET.DR PO (08:16)
[2023-12-30] MEDS: Magnesium Oxide 400 MG TABLET 200 MG PO (08:26)
[2023-12-30] MEDS: Acetaminophen/Codeine 300-30mg Tablet 2 TAB PO (08:26)
[2023-12-30] MEDS: ALPRAZolam 0.5 MG TABLET PO (08:26)
[2023-12-30] MEDS: Nicotine 21 MG PATCH.TD24 TRANSDERMA (08:26)
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
== END 2023-12-30 11:57 | disposition home or self-care (01) | DRG 753 ==
LOC: HO.ED 17:46 → HO.PM5 12-26 15:58
PROVIDERS: Admitting Provider Psychiatry & Neurology Psychiatry; Emergency Provider Emergency Medicine Emergency Medical Services; PCP Nurse Practitioner Family; Visit Provider Psychiatry & Neurology Psychiatry
DX: F31.9 Bipolar disorder, unspecified (principal); F41.9 Anxiety disorder, unspecified; F43.10 Post-traumatic stress disorder, unspecified; F90.9 Attention-deficit hyperactivity disorder, unspecified type; Z79.899 Other long term (current) drug therapy
CPT/HCPCS: 36415; 80053; 80143; 80179; 80307; 81003; 84443; 84702; 85025; 99285; S9485

== ENCOUNTER → 2023-12-26 15:41 | Outpatient (BNV) | payer OTHER, SELFPAY | PROVIDERS: Admitting Provider Psychiatry & Neurology Psychiatry; Emergency Provider Emergency Medicine Emergency Medical Services; PCP Nurse Practitioner Family; Visit Provider Psychiatry & Neurology Psychiatry | DX: F31.2 Bipolar disorder, current episode manic severe with psychotic features (principal); F43.11 Post-traumatic stress disorder, acute; F90.9 Attention-deficit hyperactivity disorder, unspecified type; F41.9 Anxiety disorder, unspecified; F41.0 Panic disorder [episodic paroxysmal anxiety] | CPT/HCPCS: 90792; 99232; 99239 ==

== ENCOUNTER 2024-01-11 11:24 | Outpatient (REF) | payer OTHER, SELFPAY | END 2024-01-11 11:25 | disposition home or self-care (01) | LOC: HO.MRI 11:24 | PROVIDERS: Visit Provider Psychiatry & Neurology Neurology | DX: M54.2 Cervicalgia (principal); M47.812 Spondylosis without myelopathy or radiculopathy, cervical region | CPT/HCPCS: 72141 ==

== ENCOUNTER 2024-01-18 09:33 | Outpatient (REF) | payer OTHER, SELFPAY ==
[2024-01-18 10:00] LABS: MANUAL DIFF FLAG NO
[2024-01-18 10:41] LABS: Basophils Percent Auto 0.3 % (0-2); Eosinophils Absolute Auto 0.2 X10*3/uL (0.0-0.4); Eosinophils Percent Auto 1.7 % (0-4); Hematocrit 44.4 % (37.0-47.0); Hemoglobin 14.2 g/dl (12.0-16.0); Imm Gran Abs Auto 0.03 X10*3/uL (0.00-0.03); Imm Gran Pct Auto 0.3 % (0.0-0.4); Lymphocytes Absolute Auto 2.4 X10*3/uL (1.2-4.9); Lymphocytes Percent Auto 28.3 % (20-40); Mean Corpuscular Hemoglobin 28.4 pg (27.0-33.0); Mean Corpuscular Volume 88.8 fL (80.0-98.0); Mean Platelet Volume 8.9 fL (9.4-12.3); Monocytes Absolute Auto 0.4 X10*3/uL (0.1-1.2); Monocytes Percent Auto 4.1 % (2-11); Neutrophils Absolute Auto 5.6 x10*3/uL (2.0-8.3); Neutrophils Percent Auto 65.3 % (45-73); Platelet Count 304 X10*3/uL (160-400); Red Cell Distribution Width 12.6 % (11.0-16.0); White Blood Count 8.6 X10*3/uL (4.8-10.8)
[2024-01-18 10:58] LABS: Appearance Urine Clear; Color Urine Yellow; Glucose Urine UA Negative (Negative); Leukocyte Esterase Urine Negative (Negative); Nitrite Urine Negative (Negative); Urine Blood Negative (Negative); Urine Ketones Negative (Negative); Urine Protein Negative (Neg-Trace)
[2024-01-18 11:22] LABS: Alanine Aminotransferase 35 U/L (0-31); Albumin Level 4.5 g/dL (3.5-5.0); Alkaline Phosphatase 65 U/L (39-117); Anion Gap 12 (12-20); Aspartate Amino Transferase 31 U/L (5-31); Bilirubin Total 0.5 mg/dL (0.0-1.0); Blood Urea Nitrogen 20 mg/dL (9-16); Calcium 9.8 mg/dL (8.4-10.2); Carbon Dioxide 29 mmol/L (22-29); Chloride 104 mmol/L (96-108); Cholesterol 289 mg/dL (<200); Estimated Glomerular Filt Rate > 60; Glucose Fasting 118 mg/dL (60-99); HDL Cholesterol 69 mg/dL (>40); LDL Cholesterol Calculated 200 mg/dL (<100); Potassium 5.5 mmol/L (3.3-5.1); Sodium 139 mmol/L (135-145); Triglycerides 102 mg/dL (<150)
[2024-01-18 11:27] LABS: TSH reflex Free T4 0.71 uIU/mL (0.32-4.0)
[2024-01-18 12:23] LABS: Creatinine Urine 75.57 mg/dL; Microalbumin Urine < 5.0 mg/L
== END 2024-01-18 09:34 | disposition home or self-care (01) ==
LOC: HO.LAB 09:33
PROVIDERS: PCP Nurse Practitioner Family; Visit Provider Nurse Practitioner Family
DX: Z00.00 Encounter for general adult medical examination without abnormal findings (principal)
CPT/HCPCS: 36415; 80053; 80061; 81003; 82043; 82570; 84443; 85025

== ENCOUNTER 2024-04-12 11:52 | Outpatient (AMB) | payer OTHER, SELFPAY ==
--- NOTE | 2024-04-12 12:22 | MHC.OFFVIS ---
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 The patient has been amenorrheic for the last 3 years. Complaining of hot flashes, vaginal dryness and sleep with mental status problem that the patient feels are related to her menopause Last Pap/HPV date was unknown No previous screening Mammogram No previous screening Colonoscopy, the patient is in the process of scheduling appointment with GI The patient has a family history of medical fracture, no previous DEXA scan PFS Medical History (Updated 04/12/24 @ 12:50 by Cash Delgado MD) Bipolar I disorder Shingles Memory loss Headache Depression PTSD (post-traumatic stress disorder) Anxiety Panic disorder ADHD Hx of fracture of leg Hepatitis C Tobacco dependence Surgical History (Updated 01/19/24 @ 00:02 by Ishmael Mora) S/P repair of ventral hernia (04/03/21) History of wisdom tooth extraction History of tonsillectomy Family History (Updated 11/05/23 @ 12:06 by Hyun Jones MA) Paternal Grandfather Lung cancer Paternal Grandmother Lung cancer Father Alcohol abuse Social History Household Members: Significant Other and Children Housing: House Do you presently have visiting nurse or other home services: No Alcohol intake: former Patient Tobacco Use Status: Current everyday Tobacco user Tobacco use type: Cigarette e-Cigarette/Vaping Use: Currently Using Second Hand Smoke Exposure: No Substance Use Type: Marijuana service: No Current occupational status: employed 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 Current occupational exposures/hazards: No Sexual orientation: Straight/Heterosexual Cognitive needs: No Hearing needs: No Vision needs: No Female Reproductive History Menstrual Age of Menarche: 16 Total pregnancies: 4 Full term: 2 Ab spontaneous: 2 Review of Systems Const All systems reviewed & are unremarkable except as noted in HPI and below Card Reports as per HPI Resp Reports as per HPI GI Reports as per HPI and Reports no additional complaints Reports as per HPI Physical Exam Vital Signs: Last Vital Signs BP 132/72 04/12/24 12:25 BMI result Body Mass Index 21.6 Const General: cooperative, healthy appearing and comfortable Chest Chest palpation & inspection: normal inspection of the chest and normal palpation of entire chest wall Breast/axilla inspection: normal inspection of the breasts and normal inspection of the axillae Breast/axilla palpation: normal palpation of the breasts, normal palpation of the axillae and no axillary lymphadenopathy Resp Effort & Inspection: normal respiratory effort Auscultation: clear to auscultation bilaterally Percussion: percussion normal Cardio Palpation: normal PMI Rate: regular rate Rhythm: regular rhythm Heart sounds: no murmurs and no rubs Peripheral pulses: Peripheral pulses 2+ throughout GI Inspection: Yes normal to inspection Palpation (GI): Soft to palpation, nontender, no guarding, not rigid and No hepatosplenomegaly present Percussion: Yes normal to percussion Auscultation: normal bowel sounds Rectal Exam - Female: deferred General: Yes bladder normal to palpation External Female Exam: No lesion Speculum Exam - Vagina: normal appearance of the vagina, normal palpation, normal vaginal discharge and not erythematous Speculum Exam - Cervix: normal appearance of the cervix and normal palpation Bimanual exam- vagina & uterus: normal bimanual exam, normal palpation, uterine size normal, bladder normal to palpation, consistency normal and normal palpation Bimanual Exam- Adnexa, other: normal adnexae, no masses and no tenderness Assessment & Plan Assessment & Plan (1) Well woman exam: Code(s): Z01.419 - Encounter for gynecological examination (general) (routine) without abnormal findings Category: Medical Plan: Co testing done. Counseled the patient about the recommended dietary allowance of 1200 mg of Calcium & 600 IU of vitamin D. Mammogram ordered. Will order DEXA scan given the high-risk factor for osteoporosis, family history of medical fracture The patient is in the process of schedule an appointment with GI for screening colonoscopy . The patient was instructed to perform monthly self-breast exams and schedule annual exam in a year. All questions answered and the patient verbalized understanding. (2) Menopause: Code(s): Z78.0 - Asymptomatic menopausal state Category: Medical Plan: Mammogram ordered, instructions given the patient to schedule a 2 week follow-up appointment to discuss HRT benefits and risk or alternative therapy. Orders: Orders XR DEXA axial skeleton Today Z78.0 - Asymptomatic menopausal state MM tomosynthesis screening BI Today Z12.31 - Encounter for screening mammogram for malignant neoplasm of breast Coding Level of Care Code New Pt Prev Care 40-64y(47012) Diagnoses Well woman exam Z01.419 Menopause Z78.0
[2024-04-12 12:25] VITALS: BP 132/72; BMI 21.6
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
--- OUTSIDE RECORDS SUMMARY | 2024-04-12 13:03 | XMS_ITS | Encounter Summary ---
Author Organization [employer] [facility] Address [address] [place] [address] [address] [place] [address] Care Team Providers Care Cloud Solutions Architect Name Role Phone Unavailable Primary Care Provider Unavailabl e Reason for Visit * Reason Comments Filling [place] Filling for #29 and #31, core and crown prep for #30 Encounter Details Date Type Department Care Team ([facility] st Contact Info) Description 03/28/2024 9:00 AM EST Office Visit [facility] ADULT DENTAL [address] [place] [address] Law Whyte, RADHA [address] [place] [address] Dental caries (Primary Dx); Full coverage crown needed for root canal-treated tooth Social History Tobacco Use Types Packs/Day Years Used Date Smoking Tobacco: Never Assessed Comments Unknown Sex and Gender Information Value Date Recorded Sex Assigned at Female 12/23/2021 10:25 AM EDT Legal Sex Female 10:25 AM EDT Gender Identity Female 02/22/2024 10:05 AM EST Sexual Orientation Don't know 02/22/2024 10 :05 AM EST documented as of this encounter Last Filed Vital Signs Vital Sign Reading Time Taken Comments Blood Pressure 98/78 03/28/2024 9:34 AM EST Pulse - - Temperature - - Respiratory Rate - - Oxygen Saturation - - Inhaled Oxygen Concentration - - Weight - - Height - - Body Mass Index - - documented in this encounter Progress Notes * Law Whyte DMD - 03/28/2024 9:00 AM EST Patient ID: Mandi Berger Donaldo is a 53 y.o. female. Time Out: Timeout Date: 03/28/24, Timeout Time: 928 (Filling # 29,31 core build up and [place] #30) Location: [facility] Tooth: #29, #30, and #31 Procedure: Shinto and [place] Verified the above with patient, records management assistant, and provider. Confirmed via patient's chart, intraorally and by radiographs. Distribution Analyst: not applicable Chief Complaint Patient presents with Filling [place] Filling for #29 and #31, core and crown prep for #30 Medical Hx: Vitals: Blood pressure 98/78. Medications, Med Hx reviewed with patient and updated in chart. Consent Obtained: The risks, benefits, indications, potential complications, and alternatives were explained to the patient and informed consent was obtained with good understanding. Treatment Provided: Dental procedures in this visit D2950 - RESTORATIVE - OTHER RESTORATIVE SERVICES - CORE BUILDUP, INCLUDING ANY PINS WHEN REQUIRED 30 (Completed) Service provider: Law Whyte DMD Billing provider: Law Whyte DMD D2391 - RESTORATIVE - RESIN-BASED COMPOSITE RESTORATIONS - DIRECT - RESIN-BASED COMPOSITE - ONE SURFACE, POSTERIOR 29 O (Completed) Service provider: Law Whyte DMD Billing provider: Law Whyte DMD D2391 - RESTORATIVE - RESIN-BASED COMPOSITE RESTORATIONS - DIRECT - RESIN-BASED COMPOSITE - ONE SURFACE, POSTERIOR 31 O (Completed) Service provider: Law Whyte DMD Billing provider: Law Whyte DMD D2700.1 - CROWN PREP 30 (Completed) Service provider: Law Wyhte DMD Billing provider: Law Whyte DMD D9450 - ADJUNCTIVE GENERAL SERVICES - PROFESSIONAL VISITS - CASE PRESENTATION, SUBSEQUENT TO DETAILED AND EXTENSIVE TREATMENT PLANNING (Completed) Service provider: Law Whyte DMD Billing provider: Law Whyte DMD Diagnosis: primary caries into dentin #29-O, #31-O, core buildup and full coverage crown needed for#30 following RCT Pt notes no pain on #30 after completion of RCT Topical: 20% Benzocaine Anesthesia: 2% Lidocaine (Xylocaine) w/ 1:100,000 epinephrine and 4% Septocaine (Articaine) w/ 1:200,000 epinephrine Number of Cartridges: 1 of each Injection Type: Buccal infiltration and Inferior alveolar nerve block Confirmed profound anesthesia. Isolation: rubber dam Prep: All caries removed, Existing mormon removed, and Preparation finalized #30 core BU: temp jose and cotton pellet removed, pulp chamber floor cleaned completely Matrix: None Etch: 37% Phosphoric Acid Etch Desensitizer: Gluma Liner/Base: None Oliver: I-Oliver Shinto Material: Voco Grandioso Flowable and Voco Grandioso Packable Shade: A3 Polished. Occlusion & contacts verified. Patient satisfied with comfort and esthetics. Removed rubber dam to complete crown prep Prepared tooth for: Ceramic crown Quikstat used for hemostasis at distal margin Gingival Retraction: Cord, Size 000 and 00, soaked in hemodent, two cord technique. Cord removal verified prior to discharge Final Impression taken with: [employer] Heavy [employer] Light Body Bite Registration taken with: Ghanshyamrinyovany VPS Provisional fabricated with: Paradigm Temp Material and cemented with: TempBond Shade: A3 Lab used: NDX Lab Due Date: 04/11 POI given to patient with instructions for homecare, to avoid sticky or crunchy foods, and to call if temp crown becomes dislodged. All questions answered. Patient tolerated procedure well, and was discharged alert, oriented, and in stable condition. NV: #30 crown collect on delivery clerk: Ammy Rm Dentist: Law Whyte DMD documented in this encounter Plan of Treatment Upcoming Encounters Date Type Department Care Team (Late st Contact Info) Description 04/18/2024 10:00 AM EST Office Visit [facility] ADULT DENTAL [address] [place] [address] Law Whyte DMD [address] [place] [address] Scheduled Orders Name Type Priority Associated Diagnoses Orde r Schedule DENTAL LAB FIXED Dental Routine Ordered: 03/28/2024 documented as of this encounter Procedures Procedure Name Priority Date/Time Associated Diagnosis Comments 30 CROWN PREP Routine 03/28/2024 9:00 AM [...] coverage crown needed for root canal-treated tooth documented in this encounter Visit Diagnoses Diagnosis Dental caries- Primary Unspecified dental caries Full coverage crown needed for root canal-treated tooth documented in this encounter
--- OUTSIDE RECORDS SUMMARY | 2024-04-12 13:03 | XMS_ITS | Encounter Summary ---
Author Organization [employer] Address [address] [place] [address] [address] [place] [address] Care Team Providers Care Manager Training And Development Name Role Phone Unavailable Primary Care Provider Unavailabl e Reason for Visit * Reason Onset Date Comments running late 03/28/2024 Encounter Details Date Type Department Care Team ( Contact Info) Description 03/28/2024 Telephone [facility] ADULT DENTAL [address] [place], [place] [phone] Law Whyte, DMD [address] [place], [place] [phone] running late Social History Tobacco Use Types Packs/Day Years Used Date Smoking Tobacco: Never Assessed Comments Unknown Sex and Gender Information Value Date Recorded Sex Assigned at Female 12/23/2021 10:25 AM EDT Legal Sex Female 10:25 AM EDT Gender Identity Female 02/22/2024 10:05 AM EST Sexual Orientation Don't know 02/22/2024 10 :05 AM EST documented as of this encounter Miscellaneous Notes * Telephone Encounter - Suly Leary - 03/28/2024 8:58 AM EST Patient called in to report that she is running late due to weather. Explained she has 10 minutes after scheduled appt time otherwise appt may need to be rescheduled. She said she is on her way to just tell the provider. I explained that I will let office know however it was important from our end to inform her. 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
== END 2024-04-12 13:00 | disposition home or self-care (01) ==
LOC: HO.HWS 11:52
PROVIDERS: PCP Nurse Practitioner Family; Visit Provider Obstetrics & Gynecology
DX: Z01.419 Encounter for gynecological examination (general) (routine) without abnormal findings (principal); Z78.0 Asymptomatic menopausal state
CPT/HCPCS: 99386; 99459

== ENCOUNTER 2024-04-12 11:52 | Outpatient (REF) | payer OTHER, SELFPAY ==
--- OUTSIDE RECORDS SUMMARY | 2024-04-12 14:07 | XMS_ITS | Clinical Summary ---
Author Organization [employer] [facility] Address [address] [place] [address] [address] [place] [address] Care Team Providers Care Relief Charge Nurse Name Role Phone Unavailable Primary Care Provider [...] Description 03/28/2024 9:00 AM EST Office Visit [facility] ADULT DENTAL [address] [place] [address] Law Whyte DMD Dental caries (Primary Dx); Full coverage crown needed for root canal-treated tooth 03/28/2024 Telephone [facility] ADULT DENTAL [address] [place] [address] Law Whyte DMD running late 02/29/2024 1:00 PM EST Office Visit [facility] ADULT DENTAL [address] [place] [address] Law Whyte DMD Symptomatic irreversible pulpitis (Primary Dx) 02/22/2024 10:00 AM EST Office Visit [facility] ADULT DENTAL [address] [place] [address] Daija Brown DMD 02/18/2024 1:00 PM EST Office Visit [facility] ADULT DENTAL [address] [place] [address] Law Whyte DMD Symptomatic irreversible pulpitis (Primary [...] Description 04/18/2024 10:00 AM EST Office Visit [facility] ADULT DENTAL [address] [place] [address] Law Whyte DMD [address] [place] [address] Health Maintenance Due Date Last Done Comments [...] Most Recently Relevant to Health Maintenance Insurance [facility] MEDICAID STAND ADULT
--- OUTSIDE RECORDS SUMMARY | 2024-04-12 14:07 | XMS_ITS | Encounter Summary ---
Author Organization [employer] Address [address] [place] [address] [address] [place] [address] Care Team Providers Care Assistant Sales Manager Name Role Phone Unavailable Primary Care Provider Unavailabl e Reason for Visit * Reason Onset Date Comments running late 03/28/2024 Encounter Details Date Type Department Care Team ( Contact Info) Description 03/28/2024 Telephone [facility] ADULT DENTAL [address] [place], [place] [phone] Law hWyte, DMD [address] [place], [place] [phone] running late Social History Tobacco Use Types [...] Description 04/18/2024 10:00 AM EST Office Visit [facility] ADULT DENTAL [address] [place] [address] Law Whyte, RADHA [address] [place] [address] documented as of this encounter Visit Diagnoses Not on filedocumented in this encounter
--- OUTSIDE RECORDS SUMMARY | 2024-04-12 14:07 | XMS_ITS | Encounter Summary ---
Author Organization [employer] [facility] Address [address] [place] [address] [address] [place] [address] Care Team Providers Care Full Time Staff Interpreter Name Role Phone Unavailable Primary Care Provider Unavailabl e Reason for Visit * Reason Comments Filling [place] Filling for #29 and #31, core and crown prep for #30 Encounter Details Date Type Department Care Team ([facility] st Contact Info) Description 03/28/2024 9:00 AM EST Office Visit [facility] ADULT DENTAL [address] [place] [address] Law Whyte, RADHA [address] [place] [address] Dental caries (Primary Dx); Full coverage crown [...] (Filling # 29,31 core build up and [place] #30) Location: [facility] Tooth: #29, #30, and #31 Procedure: Yarsani and [place] Verified the above with patient, assisted living assistant, and provider. Confirmed via patient's chart, intraorally and by radiographs. Peripheral Equipment Operator: not applicable Chief Complaint Patient presents with Filling [place] Filling for #29 and #31, core and [...] CROWN PREP 30 (Completed) Service provider: Law Whyte DMD Billing provider: Law Whyte DMD [id number] [...] rubber dam Prep: All caries removed, Existing confucianist removed, and Preparation finalized #30 core BU: temp jose and cotton pellet removed, pulp chamber floor cleaned completely Matrix: None Etch: 37% Phosphoric Acid Etch Desensitizer: Gluma Liner/Base: None Oliver: I-Oliver Yarsani Material: Voco Grandioso Flowable and Voco Grandioso [...] and in stable condition. NV: #30 crown delivery driver/supervisor: Ammy Rm Dentist: Law Whyte DMD documented in this encounter Plan of Treatment Upcoming Encounters Date Type Department Care Team (Late st Contact Info) Description 04/18/2024 10:00 AM EST Office Visit [facility] ADULT DENTAL [address] [place] [address] Law Whyte DMD [address] [place] [address] Scheduled Orders Name Type Priority Associated Diagnoses [...]
[2024-04-18 14:37] LABS: HPV Genotype 16 Negative (Negative); HPV Genotype 18 Negative (Negative); HPV High Risk Negative (Negative)
== END 2024-04-12 11:53 | disposition home or self-care (01) ==
LOC: HO.LNP 11:52
PROVIDERS: PCP Nurse Practitioner Family; Visit Provider Obstetrics & Gynecology
DX: Z01.419 Encounter for gynecological examination (general) (routine) without abnormal findings (principal); Z78.0 Asymptomatic menopausal state
CPT/HCPCS: 87626; 88175; 99386; 99459

== ENCOUNTER 2024-05-13 14:18 | Emergency (ER) | payer OTHER, SELFPAY ==
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
[2024-05-13 15:06] VITALS: BP 143/95; PULSE 91; RESP 16; TEMP 36.8; O2SAT 97; BMI 22.7
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
[2024-05-13] MEDS: Acetaminophen/Codeine 300-30mg Tablet 1 TAB PO ×2 (18:31→21:41)
[2024-05-13] MEDS: ALPRAZolam 0.5 MG TABLET PO (18:31)
[2024-05-13 19:58] VITALS: BP 144/97; PULSE 81; RESP 16; TEMP 36.2; O2SAT 97
[2024-05-13 21:44] VITALS: BP 134/98; PULSE 76; RESP 18; TEMP 36.7; O2SAT 97
[2024-05-13 21:45] VITALS: BP 134/98; PULSE 76; RESP 18; TEMP 36.7; O2SAT 97
== END 2024-05-13 21:46 | disposition home or self-care (01) ==
PROVIDERS: Emergency Provider Emergency Medicine; PCP Nurse Practitioner Family
DX: S80.12XA Contusion of left lower leg, initial encounter (principal); M54.2 Cervicalgia; R51.9 Headache, unspecified; M25.552 Pain in left hip; R10.2 Pelvic and perineal pain; F17.210 Nicotine dependence, cigarettes, uncomplicated; Y04.2XXA Assault by strike against or bumped into by another person, initial encounter; Y93.9 Activity, unspecified; Y92.9 Unspecified place or not applicable; Y99.8 Other external cause status; Z79.899 Other long term (current) drug therapy
CPT/HCPCS: 70450; 72125; 73502; 99283; 99284

== ENCOUNTER → 2024-05-13 15:30 | Outpatient (BNV) | payer OTHER, SELFPAY | PROVIDERS: PCP Nurse Practitioner Family; Visit Provider Radiology Diagnostic Radiology | DX: M54.2 Cervicalgia (principal); S80.12XA Contusion of left lower leg, initial encounter; Y04.8XXA Assault by other bodily force, initial encounter | CPT/HCPCS: 70450; 72125; 73502 ==

== ENCOUNTER 2024-07-02 10:14 | Outpatient (REF) | payer OTHER, SELFPAY ==
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
--- OUTSIDE RECORDS SUMMARY | 2024-07-02 10:16 | XMS_ITS | Clinical Summary ---
Author Organization [employer] [facility] Address [address] [facility] [address] [place] [address] Care Team Providers Care Manufacturing Test Engineer Name Role Phone Unavailable Primary Care Provider [...] Encounters Date Type Department Care Team Description 04/18/2024 10:00 AM EST Office Visit [facility] ADULT D[facility]AL [address] [place] [address] Law Whyte, RADHA Full coverage crown needed for root canal-treated tooth (Primary Dx) from Last 3 Months Social History Tobacco Use Types Packs/Day Years Used Date Smoking Tobacco: Every Day Cigarettes Smokeless Tobacco: Never Tobacco Cessation:Ready to Q uit: Not Asked; Counseling Given: Not Answered Alcohol Use Standard Drinks/Week Comments Defer 0 (1 standard drink = 0.6 oz pur e alcohol) Comments Unknown Sex and Gender Information Value [...] Mass Index - - Plan of Treatment Health Maintenance Due Date Last Done Comments CT Colonography 1972 Colonoscopy 1972 Colorectal Cancer Screening 1972 Depression Screening 1972 FIT DNA/Cologuard 1972 FIT 1972 FOBT 1972 HIV Screening 1972 Lipid Panel 1972 SDOH Screening 1972 Sigmoidoscopy 1972 Alcohol/Substance Use Screening 1984 Family Planning (PISQ) 10/20/1987 Hepatitis C Screening 1990 Hepatitis B Vaccines (1 of 3 - 19+ 3-dose series) 10/20/1991 Pneumococcal Vaccine: 50+ Years (1 of 2 - PCV) 10/20/1991 Pap Smear 1993 Cervical Cancer Screening 2002 HPV/Cotest 2002 Mammogram 2012 Dental Oral Exam 04/29/2016 10/30/2015 Dental Prophylaxis 07/15/2016 01/15/2016 Dental X-Ray: Full Mouth 10/30/2018 10/30/2015 Zoster Vaccines (1 of 2) 2022 DTaP/Tdap/Td Vaccines (2 - Tdap) 03/26/2023 03/26/2013 COVID-19 Vaccine (1 - 2023-2 5 season) 2023 Influenza Vaccine (#1) 2023 03/26/2013 Dental X-Ray: Bitewings 02/18/2025 02/18/20 24, 10/30/2015 Tobacco Screening 04/18/2025 04/18/2024 RSV Patients and Patients Aged 60 years [...] PRESENTATION, DETAILED AND EXTENSIVE TREATMENT PLANNING Routine 04/18/2024 10:00 AM EST Full coverage crown needed for root canal-treated tooth 30 CROWN - PORCELAIN/CERAMIC Routine 04/18/2024 10:00 AM EST Full coverage crown needed for root canal-treated tooth BITEWING - SINGLE RADIOGRAPHIC IMAGE Routine 02/18/2024 1:00 PM EST Symptomatic irreversible pulpitis PROPHYLAXIS - ADULT Routine 01/15/2016 1 2:00 AM EST INTRAORAL - COMPLETE SERIES OF RADIOGRAPHIC IMAGES Routine 10/30/2015 12:00 AM EDT COMPREHENSIVE ORAL EVALUATION - NEW OR ESTABLISHED PATIENT Routine 10/30/2015 12:00 AM EDT from Last 3 Months or Most Recently Relevant to Health Maintenance Insurance [facility] MEDICAID STAND ADULT
[2024-07-02 11:00] LABS: Glucose Fasting 99 mg/dL (60-99); Potassium 4.6 mmol/L (3.3-5.1)
== END 2024-07-02 10:15 | disposition home or self-care (01) ==
LOC: HO.LAB 10:14
PROVIDERS: PCP Nurse Practitioner Family; Visit Provider Nurse Practitioner Family
DX: R73.01 Impaired fasting glucose (principal); E87.5 Hyperkalemia
CPT/HCPCS: 36415; 82947; 84132

== ENCOUNTER 2024-09-19 12:17 | Outpatient (REF) | payer OTHER, SELFPAY ==
[2024-09-19 12:57] LABS: Alanine Aminotransferase 23 U/L (0-31); Albumin Level 4.2 g/dL (3.5-5.0); Alkaline Phosphatase 48 U/L (39-117); Aspartate Amino Transferase 24 U/L (5-31); Cholesterol 249 mg/dL (<200); HDL Cholesterol 50 mg/dL (>40); Total Protein 6.1 g/dL (6.5-8.0); Triglycerides 202 mg/dL (<150)
--- OUTSIDE RECORDS SUMMARY | 2024-09-19 13:13 | XMS_ITS | Encounter Summary ---
Author Organization [facility] Address [address] [facility] [address] [place] [phone] Phone Care Team Providers Care Collection Development Librarian Name Role Phone Pcp, Unknown Primary Care Provider Bertin Delarosa MD Primary Care Provider [phone] Encounter Details Date Type Department Care Team (Late st Contact Info) Description 03/30/2019 Procedure Pass OR Admitting Dept - Virtual Department [address] [place] [address] Social History Tobacco Use Types Packs/Day Years Used Date Smoking Tobacco: Every Day Cigarettes Smokeless Tobacco: Never Alcohol Use Standard Drinks/Week Comments Yes 0 (1 standard drink = 0.6 oz pure alcohol) A little evasive regarding use, but states that she does not drink daily and has never had a history of alcohol withdrawals. Comments Unknown Sex and Gender Information Value Date Recorded Sex Assigned at Female 04/27/2019 8:52 PM EST Legal Sex Female 9:31 PM EDT Gender Identity Female 04/27/2019 8:52 PM EST Sexual Orientation Choose not to disclose 2023 12:33 AM EDT documented as of this encounter Plan of Treatment Not on file documented as of this encounter Visit Diagnoses Not on filedocumented in this encounter Additional Health Concerns Infection Onset Date Last Indicated Resolved Time CoV-Risk 10/02/2023 10/02/2023 10/13/2023 1:22 AM EDT documented as of this encounter Care Teams Collection Development Librarian Relationship Specialty Start Date End Date Pcp, Unknown PCP - General 03/29/19 03/31/19 Bertin Ruiz MD [facility] [place] [address] PCP - General Internal Medicine 04/01/19 documented as of this encounter Additional Source Comments The information contained in this document represents components of the legal health record. It is not the complete legal health record.[facility]
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
== END 2024-09-19 12:18 | disposition home or self-care (01) ==
LOC: HO.LAB 12:17
PROVIDERS: PCP Nurse Practitioner Family; Visit Provider Nurse Practitioner Family
DX: E78.00 Pure hypercholesterolemia, unspecified (principal); R74.01 Elevation of levels of liver transaminase levels
CPT/HCPCS: 36415; 80061; 80076

== ENCOUNTER 2024-09-20 10:20 | Outpatient (AMB) | payer OTHER, SELFPAY ==
--- NOTE | 2024-09-20 10:29 | A.OFFPC_ITS ---
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 Required: No Is last menstrual period known: No Post menopausal: No Patient : No Allergies No Known Allergies (No Known Allergies*) Allergy (Verified 09/20/24 11:19) Medication List - Last Reconciled 09/20/24 by Mervin Iglesias CNP acetaminophen-codeine 300-30 mg 1 tab PO TID PRN 30 days alprazolam 0.5 mg PO BID 30 days cyclobenzaprine 10 mg PO TID 30 days dextroamphetamine-amphetamine 10 mg (Adderall) 10 mg PO TID 30 days diclofenac sodium 75 mg PO BID nicotine 1 patch transdermal DAILY 10 weeks nicotine (polacrilex) 4 mg buccal Q2H PRN 30 days trazodone 50 mg PO BEDTIME PRN 90 days Tobacco use date assessed: 09/20/24 Dental Screening Dental Screen Date: 09/20/24 Did you have a dental visit in the last 12 months?: Yes Did you have a dental problem in the last 6 months where you did not have access to dental care?: No Was dental information given to patient?: Patient has dentist HPI HPI Comments History of Present Illness Details 53-year-old female presents for ADHD, PT SD, anxiety, depression, and recent labs review follow-up. She admits to taking her medications as prescribed without adverse reactions. She notes that her current treatment regimen manages her ADHD, PTSD, anxiety and depression. She was followed by [facility] therapist and psychiatrist; however, she stopped following the 4 months ago; she did not find the therapist useful. She current sees a therapist weekly at [facility] and also receives weight management from them. Her neurologist from [facility], whom she sees every 3-6 months, prescribes her psychotropic medications. She notes that she was treated for hepatitis-C several years ago but did not follow-up for retesting. Request hep C blood work. [facility] Medical History (Updated 09/20/24 @ 11:15 by Mervin Iglesias CNP) Anxiety Bipolar I disorder Shingles Memory loss Headache Depression PTSD (post-traumatic stress disorder) Panic disorder ADHD Hx of fracture of leg Hepatitis C Tobacco dependence Surgical History S/P repair of ventral hernia (04/03/21) History of wisdom tooth extraction History of tonsillectomy Family History Paternal Grandfather Lung cancer Paternal Grandmother Lung cancer Father Alcohol abuse Social History Household Members: Significant Other and Children Housing: House Do you presently have visiting nurse or other home services: No Alcohol intake: former Patient Tobacco Use Status: Former Tobacco user Tobacco use type: Cigarette e-Cigarette/Vaping Use: Currently Using (nicotine ) Second Hand Smoke Exposure: No Substance Use Type: Marijuana service: No Current occupational status: employed 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 1. Little interest or pleasure in doing things: several days 2. Feeling down, depressed, or hopeless: several days 3. Trouble falling or staying asleep, or sleeping too much: several days 4. Feeling tired or having little energy: several days 5. Poor appetite or overeating: not at all 6. Feeling bad about yourself - or that you are a failure or have let yourself or your family down: several days 7. Trouble concentrating on things, such as reading the newspaper or watching television: not at all 8. Moving or speaking so slowly that other people could have noticed. Or the opposite - being so fidgety or restless that you have been moving around a lot more than usual: not at all 9. Thoughts that you would be better off or of hurting yourself in some way: not at all Total score: 5 Depression Screening Interpretation: Positive Depression Screening Follow-up: Existing condition and In treatment Depression Screening Done: Yes 55319 - PHQ-9 Billing: Yes Source: Developed by Drs. Akil Vasquez, Marysol Hunt, Syed Cosme and colleagues, with an educational mae from [employer]. Thrive Questionnaire Date Thrive assessed: 09/20/24 I am a: Patient What is your living situation today?: I have a steady place to live Within the past 12 months, did the food you bought not last and you didn't have the money to get more?: Often true Within the past 12 months, did you worry whether your food would run out before you got money to buy more?: Often true Do you have trouble paying for medicines?: Yes Do you have trouble getting transportation to medical appointments?: Yes Do you have trouble paying your heating and electricity bill?: No Do you have trouble taking care of your child, family member or friend?: No Do you have trouble with day-to-day activities such as bathing, preparing meals, shopping, managing finances, etc.?: No Are you currently unemployed and looking for a job?: I choose not to answer this question Are you interested in more education?: No Please select the resources that you would like help with: None Currently or been in a relationship where the following occur: I choose not to answer THRIVE Score: 3 AUDIT C Alcohol Use Questionnaire (AUDIT-C) 1. How often do you have a drink containing alcohol?: Never Total Score: 0 POOL-7 AMB Questionnaire POOL-7 Date POOL - 7 assessed: 09/20/24 Feeling nervous, anxious, or on edge: 3 = Nearly every day Not being able to stop or control worryin = Nearly every day Worrying too much about different things: 3 = Nearly every day Trouble relaxin = Nearly every day Being so restless that it is hard to sit still: 1 = Several days Becoming easily annoyed or irritable: 1 = Several days Feeling afraid as if something awful might happen: 1 = Several days Total POOL-7 score (0-4 normal; 5-9 mild; 10-14 moderate; 15-21 severe): 15 Source: Developed by Drs. Akil Vasquez, Syed Pimentel and colleagues, with an educational mae from [employer]. POOL-7 Assessment Billing POOL-7 Assessment Tool: POOL-7 Assessment 44226 Review of Systems Const Details: Const Denies chills, Denies fatigue, Denies fever(s), Denies headache(s) and Denies weakness ENT Denies dizziness and Denies headache(s) Card Denies chest pain, Denies lightheadedness, Denies dyspnea and Denies other (Palpitations) Resp Denies cough, Denies dyspnea, Denies wheezing and Denies other ( shortness of breath) GI Denies abdominal pain, Denies melena, Denies hematochezia, Denies change in bowel habits, Denies dyspepsia and Denies nausea Denies hematuria and Denies dysuria Musc Denies abnormal gait, Denies myalgias, Denies arthralgias, Denies numbness and Denies tingling Skin/Breast Denies rash, Denies unusual bruising and Denies wounds Neuro Denies abnormal gait, Denies dizziness, Denies headache(s), Denies memory loss, Denies numbness, Denies Sensory deficit (Neuro), Denies tingling and Denies weakness Psych Reports anxiety, Reports depression, Denies memory loss Endo Denies cold intolerance, Denies fatigue, Denies heat intolerance, Denies polydipsia and Denies polyuria Aller/Immun Denies wheezing Physical exam (Primary Care) Vital Signs: Last Vital Signs Temp 97.9 F 09/20/24 10:38 Pulse 62 09/20/24 10:38 Resp 16 09/20/24 10:38 BP 122/85 09/20/24 10:38 Pulse Ox 97 09/20/24 10:38 Oxygen Delivery Method Room Air 09/20/24 10:38 BMI result Body Mass Index 22.7 Tobacco/Smoking Status: Tobacco use Status Tobacco use date assessed 09/20/24 09/20/24 10:38 Patient Tobacco Use Status Former Tobacco user 09/20/24 10:38 Tobacco use type Cigarette 09/20/24 10:31 e-Cigarette/Vaping Use Currently Using (nicotine ) 09/20/24 10:38 PHQ-9: PHQ-9 Score PHQ-9: Total score 5 09/20/24 10:41 Depression Screening Interpretation: Positive Depression Screening Follow-up: Existing condition and In treatment Thrive Assessment: Date of Thrive Assessment Date Thrive assessed 09/20/24 09/20/24 10:38 Currently or been in a relationship where the following occur: I choose not to answer Const Other: General: no acute distress and well developed Nutritional Appearance: well nourished Orientation/consciousness: patient oriented x3 HENMT Head: Yes normocephalic and Yes atraumatic Eyes General: appearance normal, both eyes and all related structures Pupils: Equal, round and reactive pupils present EOM: EOMs intact bilaterally Resp Effort & Inspection: normal respiratory effort Auscultation: clear to auscultation bilaterally Cardio Rate: regular rate Rhythm: regular rhythm Heart sounds: S1 normal heart sound present, S2 normal heart sound present, no gallops, no murmurs and no rubs GI Palpation (GI): No Abdominal aortic bruit present, Soft to palpation, nontender, No hepatosplenomegaly present and No Rebound tenderness present Auscultation: normal bowel sounds General: Yes no CVA tenderness Back/Spine/Pelvis Back: no CVA tenderness Cervical Spine: cervical ROM normal and No Cervical spine tenderness Thoracic/Lumbar Spine: thoraco-lumbar ROM normal, No pain with thoraco-lumbar ROM, No thoracic spinal tenderness and No lumbar spinal tenderness Extrem General: Yes normal to inspection, No edema and No calf tenderness Skin General: warm and dry. Normal skin color. Normal skin turgor Neuro General: patient oriented x3, gait normal and no focal neuro deficit Cranial nerves: Yes Equal, round and reactive pupils present Cognition (Neuro): normal cognition Gait exam (Neuro): Normal gait present Sensory Exam: No Sensory deficit (Neuro) Psych Appearance: grossly normal Affect: normal affect Attitude: cooperative Thought process: Normal thought process present Coding Level of Care Code Est Pt Level 4 (95836) Diagnoses ADHD F90.9 PTSD (post-traumatic stress disorder) F43.10 Anxiety F41.9 Depression F32.A Hypercholesterolemia E78.00 Laboratory tests ordered as part of a complete physical exam (CPE) Z00.00 Additional Codes POOL-7 Assessment Billing - POOL-7 Assessment Tool: POOL-7 Assessment 97459 ([id number]) PHQ-9 - 64636 - PHQ-9 Billing: Yes ([id number]) Assessment & Plan Assessment & Plan (1) ADHD: Code(s): F90.9 - Attention-deficit hyperactivity disorder, unspecified type Category: Medical Plan: She notes that her current treatment regimen manages her ADHD, PTSD, anxiety and depression. PHQ-9 and POOL-7 scores revealed mild depression and severe anxiety respectively. Continue current treatment regimen. Routine exercise encouraged. Continue follow-up with Neurology as planned. Perform lab work and follow-up for an extended physical exam and labs review in 2 months. Return sooner with symptoms or concerns. Verbalized understanding and agreed with the plan. (2) PTSD (post-traumatic stress disorder): Code(s): F43.10 - Post-traumatic stress disorder, unspecified Category: Medical Plan: Plan as above. (3) Anxiety: Comment: Rule out POOL; rule out OCD Code(s): F41.9 - Anxiety disorder, unspecified Category: Medical Plan: Plan as above. (4) Depression: Code(s): F32.A - Depression, unspecified Category: Medical Plan: Plan as above. (5) Hypercholesterolemia: Code(s): E78.00 - Pure hypercholesterolemia, unspecified Category: Medical Plan: Recent triglycerides level is elevated, 202 from 102; total cholesterol and LDL levels are elevated, 244 and 159 respectively; previous levels were 289 and 200. Advised to limit foods high in saturated fat and avoid foods high in trans fat. Routine exercise encouraged. Fast for 10-12 hours, may drink water, and perform lipid panel blood work 2-3 days before next visit. Follow-up in 2 months. Verbalized understanding and agreed with the plan. (6) Laboratory tests ordered as part of a complete physical exam (CPE): Code(s): Z00.00 - Encounter for general adult medical examination without abnormal findings Category: Medical Plan: Fasting labs ordered as part of a complete physical exam. Advised to fast for at least 10 hours before getting labs drawn. May drink water Verbalized understanding and agreed with treatment plan. Orders: Orders Complete Blood Count Auto Diff 2 Months Z00.00 - Encounter for general adult medical examination without abnormal findings Comprehensive [place]. Panel Fast 2 Months Z00.00 - Encounter for general adult medical examination without abnormal findings Lipid Panel 2 Months Z00.00 - Encounter for general adult medical examination without abnormal findings Hepatitis C Viral Load Today Z00.00 - Encounter for general adult medical examination without abnormal findings Microalbumin, Random (w Creat) 2 Months Z00.00 - Encounter for general adult medical examination without abnormal findings TSH reflex Free T4 2 Months Z00.00 - Encounter for general adult medical examination without abnormal findings UA CC w/rflx Micro + Cult 2 Months Z00.00 - Encounter for general adult medical examination without abnormal findings Vitamin D 25-OH Total 2 Months Z00.00 - Encounter for general adult medical examination without abnormal findings
[2024-09-20 10:38] VITALS: BP 122/85; PULSE 62; RESP 16; TEMP 36.6; O2SAT 97; BMI 22.7
--- OUTSIDE RECORDS SUMMARY | 2024-09-20 11:14 | XMS_ITS | Encounter Summary ---
Author Organization [employer] Address [address] [facility] [address] [place] [address] Care Team Providers Care Pickle Processor Name Role Phone Unavailable Primary Care Provider Unavailabl e Reason for Visit * Reason Onset Date Comments running late 03/28/2024 Encounter Details Date Type Department Care Team (Late st Contact Info) Description 03/28/2024 Telephone [facility] [address] [place] [address] Law Whyte, DMD [address] [place], [place] [phone] running late Social History Tobacco Use Types [...]
== END 2024-09-20 11:35 | disposition home or self-care (01) ==
LOC: HO.HMCFM 10:20
PROVIDERS: PCP Nurse Practitioner Family; Visit Provider Nurse Practitioner Family
DX: F90.9 Attention-deficit hyperactivity disorder, unspecified type (principal); F43.10 Post-traumatic stress disorder, unspecified; F41.9 Anxiety disorder, unspecified; F32.A Depression, unspecified; E78.00 Pure hypercholesterolemia, unspecified; Z00.00 Encounter for general adult medical examination without abnormal findings

== ENCOUNTER → 2024-09-20 10:20 | Outpatient (BNVA) | payer OTHER, SELFPAY | PROVIDERS: PCP Nurse Practitioner Family; Visit Provider Nurse Practitioner Family | DX: Z00.00 Encounter for general adult medical examination without abnormal findings (principal); F90.9 Attention-deficit hyperactivity disorder, unspecified type; F43.10 Post-traumatic stress disorder, unspecified; F41.9 Anxiety disorder, unspecified; F32.A Depression, unspecified; E78.00 Pure hypercholesterolemia, unspecified; Z13.31 Encounter for screening for depression; Z13.39 Encounter for screening examination for other mental health and behavioral disorders | CPT/HCPCS: 96127; 99212 ==

== ENCOUNTER 2024-10-11 11:21 | Outpatient (AMB) | payer OTHER, SELFPAY ==
--- NOTE | 2024-10-11 11:25 | MHC.OFFVIS ---
Vital Signs 10/11/24 11:26 Height 5 ft 8 in Weight 145 lb 8.081 oz BMI 22.1 BP 146/93 H Blood Pressure Location Lt brachial Position Sitting Pulse 89 Intake Visit Reasons: colo screening Intake Note: Mandi presents in the office as a new patient for a colonoscopy screening CC: She states that her father has colon rectal cancer and she has never had a colonoscopy. She states that her bowels vary between constipation and diarrhea. Has had umilical hernia surgery in the past. She states she may have a rectal prolapse and her anxiety is high over the constipation. Event Decorator And Designer Required: No Allergies No Known Allergies (No Known Allergies*) Allergy (Verified 10/11/24 11:27) HPI HPI colo screening: Details: 53 year old? female with past medical history of anxiety, hypercholesterolemia, transaminitis, panic disorder, bipolar disorder, PTSD, status post ventral hernia repair in 2021, history of hepatitis C, treated is here today for pre colonoscopy screening.? Patient was sent to us by her PCP.? This is her first colonoscopy screening.? Patient reports diarrhea and constipation. Patient reports that she is constipated more often..? Patient reports father in his 60s diagnosed with colorectal cancer.? Denies history of difficulty with sedation or anesthesia in the past.? Negative for history of sleep apnea.? Denies any history of cardiac, renal, pulmonary, or hepatic disease.?? History of hep C, treated couple years ago.? Patient is not on any anticoagulation [facility] Medical History Anxiety Bipolar I disorder Shingles Memory loss Headache Depression PTSD (post-traumatic stress disorder) Panic disorder ADHD Hx of fracture of leg Hepatitis C Tobacco dependence Surgical History S/P repair of ventral hernia (04/03/21) History of wisdom tooth extraction History of tonsillectomy Family History (Updated 10/11/24 @ 11:27 by PATRIC Cedeno) Paternal Grandfather Lung cancer Paternal Grandmother Lung cancer Father Alcohol abuse Colon cancer Social History Household Members: Significant Other and Children Housing: House Do you presently have visiting nurse or other home services: No Alcohol intake: former Patient Tobacco Use Status: Former Tobacco user Tobacco use type: Cigarette e-Cigarette/Vaping Use: Currently Using (nicotine ) Second Hand Smoke Exposure: No Substance Use Type: Marijuana service: No Current occupational status: employed 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 Current occupational exposures/hazards: No Sexual orientation: Straight/Heterosexual Cognitive needs: No Hearing needs: No Vision needs: No Female Reproductive History Menstrual Age of Menarche: 16 Review of Systems Const Denies weight gain and Denies weight loss ENT Reports no additional complaints, Denies dysphagia and Denies odynophagia Card Reports no additional complaints Resp Reports no additional complaints GI Denies abdominal pain, Denies belching, Denies melena, Reports bloating, Denies change in bowel habits, Reports constipation, Reports GI cramping, Denies dysphagia, Denies excessive flatus, Denies dyspepsia, Reports heartburn, Denies diarrhea, Reports loose stools, Denies nausea, Denies odynophagia and Denies vomiting Reports no additional complaints Musc Reports no additional complaints Neuro Reports no additional complaints Psych Reports no additional complaints Endo Reports no additional complaints Physical Exam Vital Signs: Last Vital Signs Pulse 89 10/11/24 11:26 BP 146/93 H 10/11/24 11:26 BMI result Body Mass Index 22.1 Const General: healthy appearing, no acute distress and well developed Nutritional Appearance: well nourished Orientation/consciousness: patient oriented x3 Resp Effort & Inspection: normal respiratory effort, able to speak in complete sentences, no tracheal deviation and symmetric chest movement Auscultation: clear to auscultation bilaterally Cardio Rate: regular rate GI Inspection: Yes normal to inspection and No distended Palpation (GI): Soft to palpation, not firm, nontender and No hepatosplenomegaly present Auscultation: normal bowel sounds General: Yes no CVA tenderness Back/Spine/Pelvis Back: no CVA tenderness Skin General skin exam: elasticity normal, turgor normal and dry skin Neuro General: patient oriented x3 Psych Appearance: grossly normal Mental Status: mental status grossly normal Assessment & Plan Assessment & Plan (1) Colon cancer screening: Code(s): Z12.11 - Encounter for screening for malignant neoplasm of colon Category: Medical (2) Hepatitis C: Code(s): B19.20 - Unspecified viral hepatitis C without hepatic coma Category: Medical Qualifiers: Hepatic coma status: with hepatic coma (3) Elevated ALT measurement: Code(s): R74.01 - Elevation of levels of liver transaminase levels Category: Medical (4) S/P repair of ventral hernia: Onset Date: 04/03/21 Code(s): Z98.890 - Other specified postprocedural states; Z87.19 - Personal history of other diseases of the digestive system Category: Surgical (5) Postprandial diarrhea: Code(s): K52.9 - Noninfective gastroenteritis and colitis, unspecified (6) Postprandial epigastric pain: Code(s): R10.13 - Epigastric pain (7) Constipation: Code(s): K59.00 - Constipation, unspecified Qualifiers: Constipation type: slow transit constipation Qualified Code(s): K59.01 - Slow transit constipation Plan Will check plan min B12, folate, vitamin-D level. Stool for ova parasite. Patient reports epigastric pain will order lipase, transglutaminase. Will check her thyroid. Discussed with patient low FODMAP diet. List of food recommended as well as list of food to avoid given to patient. Patient was encouraged to take fiber with pre and probiotics daily. May take Dulcolax in the evening to help eliminate her bowels better. Increase fluid intake and activity to promote better bowel motility. Follow-up in 2-3 months to discuss the prep again and re-evaluate. Patient is agreeable to plan of care verbalizes understanding of instructions. She was given the opportunity to ask questions and all questions answered. Thank you for allowing me to participate in her care Orders: Orders Vitamin B12 and Folate Today R19.7 - Diarrhea, unspecified Vitamin D 25-OH (D2 and D3) Today E55.9 - Vitamin D deficiency, unspecified Ova and Parasite Today R19.7 - Diarrhea, unspecified Lipase Today R10.9 - Unspecified abdominal pain Transglutaminase IgA Today R10.9 - Unspecified abdominal pain Transglutaminase Ab IgG Today R10.9 - Unspecified abdominal pain TSH reflex Free T4 Today K59.00 - Constipation, unspecified Medications: New bisacodyl (Dulcolax (bisacodyl)) take 4 tabs at noon the day before your colonoscopy 20 mg (4 x 5 mg) PO ONCE 4 tabs 0RF constipation 1 day Z12.11 - Encounter for screening for malignant neoplasm of colon polyethylene glycol 3350 (Miralax) As directed by gastroenterology department at [facility] 238 grams PO ONCE 238 grams 0RF Z12.11 - Encounter for screening for malignant neoplasm of colon Coding Level of Care Code New Pt Level 4 (41993) Complex EM visit Add On G2211 Diagnoses Colon cancer screening Z12.11 Hepatitis C B19.20 Hepatic coma status: with hepatic coma Elevated ALT measurement R74.01 S/P repair of ventral hernia Z98.890; Z87.19 Postprandial diarrhea K52.9 Postprandial epigastric pain R10.13 Slow transit constipation K59.01 Constipation type: slow transit constipation Time Spent (min) 50 Comment 35 minutes spent with patient and additional 15 minutes spent reviewing her records
[2024-10-11 11:26] VITALS: BP 146/93; PULSE 89; BMI 22.1
--- OUTSIDE RECORDS SUMMARY | 2024-10-11 12:55 | XMS_ITS | Encounter Summary ---
Author Organization [employer] Address [address] [facility] [address] [place] [address] Care Team Providers Care Coal Hiker Name Role Phone Unavailable Primary Care Provider Unavailabl e Reason for Visit * Reason Onset Date Comments running late 03/28/2024 Encounter Details Date Type Department Care Team (Late st Contact Info) Description 03/28/2024 Telephone [facility] [address] [place] [address] Law Whyte, DMD [address] [place], [place] [phone] running late Social History Tobacco Use Types [...]
--- OUTSIDE RECORDS SUMMARY | 2024-10-11 12:55 | XMS_ITS | Encounter Summary ---
Author Organization [facility] Address [address] [facility] [facility] [address] [place] [phone] Phone Care Team Providers Care Chaplain Resident Name Role Phone Pcp, Unknown Primary Care Provider Bertin Delarosa MD Primary Care Provider Encounter Details Date Type Department Care Team (Late st Contact Info) Description 03/30/2019 Procedure Pass OR Admitting Dept - Virtual Department [address] [place] [address] Social History Tobacco Use Types Packs/Day Years [...] documented as of this encounter Care Teams Chaplain Resident Relationship Specialty Start Date End Date Pcp, Unknown PCP - General 03/29/19 03/31/19 Bertin Ruiz MD [facility] [place] [address] PCP - General Internal Medicine 04/01/19 documented as of this encounter Additional Source Comments The information contained in this document represents components of the legal health record. It is not the complete legal health record.[facility]
== END 2024-10-11 11:49 | disposition home or self-care (01) ==
PROVIDERS: PCP Nurse Practitioner Family; Visit Provider Nurse Practitioner Family
DX: Z01.818 Encounter for other preprocedural examination (principal); Z12.11 Encounter for screening for malignant neoplasm of colon; B19.20 Unspecified viral hepatitis C without hepatic coma; R74.01 Elevation of levels of liver transaminase levels; K52.9 Noninfective gastroenteritis and colitis, unspecified; R10.13 Epigastric pain; K59.01 Slow transit constipation; Z87.19 Personal history of other diseases of the digestive system
CPT/HCPCS: 99204

== ENCOUNTER → 2024-10-11 11:21 | Outpatient (BNVA) | payer OTHER, SELFPAY | PROVIDERS: PCP Nurse Practitioner Family; Visit Provider Nurse Practitioner Family | DX: Z01.818 Encounter for other preprocedural examination (principal); B19.20 Unspecified viral hepatitis C without hepatic coma; R74.01 Elevation of levels of liver transaminase levels; Z87.19 Personal history of other diseases of the digestive system; K52.9 Noninfective gastroenteritis and colitis, unspecified; R10.13 Epigastric pain; K59.01 Slow transit constipation | CPT/HCPCS: 99202 ==

== ENCOUNTER 2024-12-02 07:42 | Outpatient (REF) | payer OTHER, SELFPAY ==
--- OUTSIDE RECORDS SUMMARY | 2024-12-02 07:46 | XMS_ITS | Encounter Summary ---
Author Organization [employer] Address [address] [facility] [address] [place] [address] Care Team Providers Care Cable Supervisor Name Role Phone Unavailable Primary Care Provider Unavailabl e Reason for Visit * Reason Onset Date Comments running late 03/28/2024 Encounter Details Date Type Department Care Team (Late st Contact Info) Description 03/28/2024 Telephone [facility] [address] [place] [address] Law Whyte, DMD [address] [place], [place] [phone] running late Social History Tobacco Use Types [...]
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
[2024-12-02 07:53] LABS: MANUAL DIFF FLAG NO
[2024-12-02 08:26] LABS: Hematocrit 41.1 % (37.0-47.0); Hemoglobin 13.6 g/dl (12.0-16.0); Imm Gran Abs Auto 0.01 X10*3/uL (0.00-0.03); Imm Gran Pct Auto 0.1 % (0.0-0.4); Lymphocytes Absolute Auto 3.5 X10*3/uL (1.2-4.9); Mean Corpuscular HGB Conc 33.1 g/dl (31.0-35.0); Mean Corpuscular Hemoglobin 28.9 pg (27.0-33.0); Mean Corpuscular Volume 87.3 fL (80.0-98.0); NRBC Abs Auto 0.000 X10*3/uL (0.0-0.012); NRBC Pct Auto 0.0 /100WBC (0.0-0.2); Platelet Count 331 X10*3/uL (160-400); Red Blood Count 4.71 X10*6/uL (4.20-5.50); White Blood Count 8.2 X10*3/uL (4.8-10.8)
[2024-12-02 08:35] LABS: Appearance Urine Clear; Glucose Urine UA Negative (Negative); PH 6.5 (5.0-9.0); Specific Gravity - Urine 1.015 (1.005-1.025); UMIC TRIGGER UACC YES
[2024-12-02 08:57] LABS: Microalbum/Creatinine Ratio Ur 7.3 ug/mg cr (<30)
[2024-12-02 08:58] LABS: Alanine Aminotransferase 26 U/L (0-31); Albumin Level 4.5 g/dL (3.5-5.0); Alkaline Phosphatase 71 U/L (39-117); Anion Gap 12 (12-20); Aspartate Amino Transferase 33 U/L (5-31); Blood Urea Nitrogen 9 mg/dL (9-16); Calcium 9.5 mg/dL (8.4-10.2); Carbon Dioxide 31 mmol/L (22-29); Chloride 103 mmol/L (96-108); Cholesterol 284 mg/dL (<200); Estimated Glomerular Filt Rate > 60; HDL Cholesterol 62 mg/dL (>40); Potassium 4.7 mmol/L (3.3-5.1); Sodium 141 mmol/L (135-145); Total Protein 7.0 g/dL (6.5-8.0); Triglycerides 99 mg/dL (<150)
== END 2024-12-02 07:43 | disposition home or self-care (01) ==
LOC: HO.LAB 07:42
PROVIDERS: Absent Provider Nurse Practitioner Family; PCP Nurse Practitioner Family; Visit Provider Nurse Practitioner Family
DX: Z00.00 Encounter for general adult medical examination without abnormal findings (principal)
CPT/HCPCS: 36415; 80053; 80061; 81001; 82043; 82306; 82570; 84443; 85025

== ENCOUNTER 2024-12-06 09:28 | Outpatient (AMB) | payer OTHER, SELFPAY ==
--- NOTE | 2024-12-06 09:31 | MHC.PC.OV ---
Vital Signs 12/06/24 09:38 Height 5 ft 8 in Weight 147 lb 6 oz BMI 22.4 BP 140/87 H Blood Pressure Location Lt brachial Position Sitting Respiration 16 Pulse 86 Pulse Source Pulse Oximeter Temp 97.6 F Temp Source Oral Pulse Oximetry (%) 98 Oxygen Delivery Method Room Air Intake Visit Reasons: 2 mos CPE, labs review (lyft) Intake Note: patient here for CPE and labs review and needs med refill Surgical Sales Representative Required: No Is last menstrual period known: No Post menopausal: No Patient : No Allergies No Known Allergies (No Known Allergies*) Allergy (Verified 12/06/24 09:58) Medication List - Last Reconciled 12/06/24 by Mervin Iglesias CNP acetaminophen-codeine 300-30 mg 1 tab PO TID PRN 30 days alprazolam 0.5 mg PO BID 30 days bisacodyl (Dulcolax (bisacodyl)) 20 mg (4 x 5 mg) PO ONCE 1 day cyclobenzaprine 10 mg PO TID 30 days dextroamphetamine-amphetamine 10 mg (Adderall) 10 mg PO TID 30 days diclofenac sodium 75 mg PO BID 30 days naloxone 4 mg/actuation 1 spray intranasal DAILY nicotine 1 patch transdermal DAILY 10 weeks nicotine (polacrilex) 4 mg buccal Q2H PRN 30 days polyethylene glycol 3350 (Miralax) 238 grams PO ONCE Tobacco use date assessed: 12/06/24 Dental Screening Dental Screen Date: 12/06/24 Did you have a dental visit in the last 12 months?: Yes Did you have a dental problem in the last 6 months where you did not have access to dental care?: No Was dental information given to patient?: Patient has dentist HPI HPI Comments History of Present Illness Details 54-year-old female presents for an extended physical exam. She admits to taking her medications are prescribed without adverse reactions. Acute issue(s) She notes that she has always have panic attacks. She notes that she has been very anxious. She also reports depression. She notes that her symptoms are usually controlled on when she is on the effective medication regimen. She denies SI/HI/AVH. She is followed by [facility] who manages her psychiatric condition. She sees a therapist weekly. She notes that she is extremely upset. She notes that her bowel movements changes from diarrhea to hard stools. She had small pieces like gravel stools this morning and noticed off-white particle in her stools which resembles tapeworm. She had upset stomach, nausea, and non-bloody vomiting the past 3 days. She attributes her nausea/vomiting to anxiety symptoms. No acute abdominal symptoms. Reports fungal infection not the nails of her feet for which she requests medication. Past Medical History - Chronic headaches, chronic neck pain, shingles, memory loss, hyperopia, hypercholesterolemia, ADHD, PTSD, anxiety, depression, panic disorder Social History - Former smoker. Vapes nicotine daily. does not drink alcohol. Smokes/vapes/eat cannabis daily - Has been making healthy dietary choices. Exercises routinely. Reports poor sleep d/t anxiety, has a follow up with her neurologist today for medication management Health maintenance - Last eye exam was a ago [facility]. Encouraged to follow up her ophthalmology for routine eye exam - Last dental visit was within the past year - Last Tdap was in 04/04/2013; vaccine given today - Has not been vaccinated for the flu this season; declines vaccination - She notes that she is up-to-date on the shingles vaccines - Last pap smear test was in 03/2024: negative - She has never had a mammogram. Mammogram ordered - She has never had a colonoscopy. She has a follow up with [facility] in 12/28/2024 Specialists - [facility]ology - Followed by a therapist, in-person, weekly [facility] Medical History Anxiety Bipolar I disorder Shingles Memory loss Headache Depression PTSD (post-traumatic stress disorder) Panic disorder ADHD Hx of fracture of leg Hepatitis C Tobacco dependence Surgical History S/P repair of ventral hernia (04/03/21) History of wisdom tooth extraction History of tonsillectomy Family History Paternal Grandfather Lung cancer Paternal Grandmother Lung cancer Father Alcohol abuse Colon cancer Social History Household Members: Significant Other and Children Housing: House Do you presently have visiting nurse or other home services: No Alcohol intake: former Patient Tobacco Use Status: Former Tobacco user Tobacco use type: Cigarette e-Cigarette/Vaping Use: Currently Using (nicotine ) Second Hand Smoke Exposure: No Substance Use Type: Marijuana service: No Current occupational status: employed 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 1. Little interest or pleasure in doing things: several days 2. Feeling down, depressed, or hopeless: several days 3. Trouble falling or staying asleep, or sleeping too much: nearly every day 4. Feeling tired or having little energy: several days 5. Poor appetite or overeating: several days 6. Feeling bad about yourself - or that you are a failure or have let yourself or your family down: several days 7. Trouble concentrating on things, such as reading the newspaper or watching television: nearly every day 8. Moving or speaking so slowly that other people could have noticed. Or the opposite - being so fidgety or restless that you have been moving around a lot more than usual: more than half the days 9. Thoughts that you would be better off or of hurting yourself in some way: not at all Total score: 13 Depression Screening Interpretation: Positive Depression Screening Done: Yes 86948 - PHQ-9 Billing: Yes Source: Developed by Drs. Akil Vasquez, Marysol Hunt, Syed Cosme and colleagues, with an educational mae from [employer]. Thrive Questionnaire Date Thrive assessed: 12/06/24 I am a: Patient What is your living situation today?: I have a steady place to live Within the past 12 months, did the food you bought not last and you didn't have the money to get more?: Often true Within the past 12 months, did you worry whether your food would run out before you got money to buy more?: Often true Do you have trouble paying for medicines?: Yes Do you have trouble getting transportation to medical appointments?: Yes Do you have trouble paying your heating and electricity bill?: Yes Do you have trouble taking care of your child, family member or friend?: No Do you have trouble with day-to-day activities such as bathing, preparing meals, shopping, managing finances, etc.?: Yes Are you currently unemployed and looking for a job?: No Are you interested in more education?: No Please select the resources that you would like help with: Paying for medicine, Transportation and Daily support Currently or been in a relationship where the following occur: No concerns reported and I choose not to answer THRIVE Score: 4 AUDIT C Alcohol Use Questionnaire (AUDIT-C) 1. How often do you have a drink containing alcohol?: Never 3. How often do you have six or more drinks on one occasion?: Never Total Score: 0 Score Reviewed/Action Taken: Yes POOL-7 AMB Questionnaire POOL-7 Date POOL - 7 assessed: 12/06/24 Feeling nervous, anxious, or on edge: 3 = Nearly every day Not being able to stop or control worryin = Nearly every day Worrying too much about different things: 3 = Nearly every day Trouble relaxin = Nearly every day Being so restless that it is hard to sit still: 1 = Several days Becoming easily annoyed or irritable: 2 = More than half the days Feeling afraid as if something awful might happen: 3 = Nearly every day Total POOL-7 score (0-4 normal; 5-9 mild; 10-14 moderate; 15-21 severe): 18 Source: Developed by Drs. Akil Vasquez, Marysol Hunt, Syed Cosme and colleagues, with an educational mae from [employer]. Review of Systems Const Details: Denies chills, Denies fatigue, Denies fever(s), Denies headache(s) and Denies weakness HEENT Denies change in vision, Denies dizziness, Denies headache(s), Denies hearing loss, Denies nasal congestion, Denies sinus pain, Denies sinus pressure and Denies sore throat Card Denies chest pain, Denies lightheadedness, Denies dyspnea and Denies other (palpitations) Resp Denies cough, Denies dyspnea and Denies wheezing GI Reports as per HPI Denies hematuria and Denies dysuria Musc Denies abnormal gait, Denies myalgias, Denies arthralgias, Denies numbness and Denies tingling Skin/Breast Reports fungal toenails, Denies rash, Denies unusual bruising and Denies wounds Neuro Denies abnormal gait, Denies dizziness, Denies headache(s), Denies memory loss, Denies numbness, Denies Sensory deficit (Neuro), Denies tingling and Denies weakness Psych Reports anxiety, Reports depression Endo Denies cold intolerance, Denies fatigue, Denies heat intolerance, Denies polydipsia and Denies polyuria Dejon/Lymph Denies easy bleeding and Denies easy bruising Aller/Immun Denies wheezing Physical exam (Primary Care) Vital Signs: Last Vital Signs Temp 97.6 F 12/06/24 09:38 Pulse 86 12/06/24 09:38 Resp 16 12/06/24 09:38 BP 140/87 H 12/06/24 09:38 Pulse Ox 98 12/06/24 09:38 Oxygen Delivery Method Room Air 12/06/24 09:38 BMI result Body Mass Index 22.4 Tobacco/Smoking Status: Tobacco use Status Tobacco use date assessed 12/06/24 12/06/24 09:41 Patient Tobacco Use Status Former Tobacco user 12/06/24 09:34 Tobacco use type Cigarette 12/06/24 09:34 e-Cigarette/Vaping Use Currently Using (nicotine ) 12/06/24 09:34 PHQ-9: PHQ-9 Score PHQ-9: Total score 13 12/06/24 12:27 Depression Screening Interpretation: Positive Thrive Assessment: Date of Thrive Assessment Date Thrive assessed 12/06/24 12/06/24 09:34 Currently or been in a relationship where the following occur: No concerns reported and I choose not to answer Const Other: General: no acute distress, well developed, alert and awake Nutritional Appearance: well nourished Orientation/consciousness: patient oriented x3 HENMT Head: Yes normocephalic and Yes atraumatic Ears: hearing grossly normal bilaterally and TM's normal bilaterally General nose exam: Normal external nose present and Normal nares present Mouth: Normal oral and palatal mucosa present and moist mucous membranes Teeth and gingiva: dentition normal Throat: Yes oropharynx normal Eyes Pupils: Equal, round and reactive pupils present and Pupil accommodation reflex normal EOM: EOMs intact bilaterally Neck Neck: Yes normal visual inspection, Yes no lymphadenopathy and Yes trachea midline Thyroid: Thyroid normal Carotids: no bruits Lymphatic: no lymphadenopathy noted Chest Chest palpation & inspection: normal inspection of the chest Resp Effort & Inspection: normal respiratory effort Auscultation: clear to auscultation bilaterally Cardio Rate: regular rate Rhythm: regular rhythm Heart sounds: S1 normal heart sound present, S2 normal heart sound present, no gallops, no murmurs and no rubs Bruits: no abdominal aortic bruits and no carotid bruits GI Palpation (GI): No Abdominal aortic bruit present, Soft to palpation, tender, No hepatosplenomegaly present and No Rebound tenderness present Auscultation: normal bowel sounds General: Yes no CVA tenderness Back/Spine/Pelvis Back: no CVA tenderness Cervical Spine: cervical ROM normal and No Cervical spine tenderness Thoracic/Lumbar Spine: thoraco-lumbar ROM normal, No pain with thoraco-lumbar ROM, No thoracic spinal tenderness and No lumbar spinal tenderness Skin General: warm and dry. Normal skin color. Normal skin turgor Lesions: no lesions Rashes: no rashes Trauma: no lacerations or abrasions Wounds: no wounds Nails: Thick/hardened/discolored nails of both feet, worse on both great toes Neuro General: patient oriented x3, gait normal and CN's II-XI intact bilaterally Cranial nerves: Yes Equal, round and reactive pupils present Cognition (Neuro): normal cognition Gait exam (Neuro): Normal gait present Motor exam (neuro): 5/5 motor strength present throughout Sensory Exam: No Sensory deficit (Neuro) Deep tendon reflexes (DTR's): Right patellar reflex intensity grade: 2+ and Left patellar reflex intensity grade: 2+ Extrem General: Yes normal to inspection, No edema and No calf tenderness Psych Appearance/behavior: grossly normal, adequate hygiene, very irritable, loud, agitated, aggressive Affect: Flat Attitude: Argumentative but cooperative Thought process: You're a bad doctor! Results AMB Hemoglobin A1c AMB Hemoglobin A1c 5.5 % Last Edit by Hyun Jones MA on 12/06/24 12:18 Immunizations Boostrix Tdap 2.5 Lf unit-8 mcg-5 Lf/0.5 mL intramuscular syringe Performing Provider: Mervin Iglesias CNP Performing Location: [facility] Administered by: Deana Pena RN on 12/06/24 10:47 Dose Route Admin Location Dispensed Lot Number Expiration Date [facility][NOTE 3] [employer] Claim Examiner 0.5 mL IM Left Deltoid 0.5 mL [id number] 01/20/27 68813-537-29 [employer] Total Dispensed Waste 0.5 mL 0 % VIS Given Date VIS Provided VIS Publication Date 12/06/24 Single Vaccine 20 Eligibility Eligibility Date Funding Source Not [facility] Eligible 12/06/24 Private Results Reviewed Results Reviewed: Laboratory Last Values Hgb A1c (Clinic) 5.5 % (4.0-6.0) 12/06/24 10:58 Coding Level of Care Code Est Pt Level 4 (15467) Est Pt Prev Care 40-64y(24123) Diagnoses Normal physical examination, routine Z00.00 Hypercholesterolemia E78.00 Elevated fasting glucose R73.01 Hyperbilirubinemia E80.6 Elevated AST (SGOT) R74.01 Vitamin D deficiency E55.9 Anxiety F41.9 Panic disorder F41.0 Bipolar I disorder F31.9 Onychomycosis B35.1 Bowel habit changes R19.4 Breast cancer screening by mammogram Z12.31 Additional Codes PHQ-9 - 99314 - PHQ-9 Billing: Yes ([id number]) Assessment & Plan Assessment & Plan (1) Normal physical examination, routine: Code(s): Z00.00 - Encounter for general adult medical examination without abnormal findings Category: Medical Plan: No significant physical limitation noted. Continue current treatment regimen. Healthy diet and routine exercise encouraged. Perform lab work and follow-up for telehealth visit for hypercholesterolemia and vitamin-D deficiency in 2 months. Return sooner with symptoms or concerns. Verbalized understanding and agreed with the plan. (2) Hypercholesterolemia: Code(s): E78.00 - Pure hypercholesterolemia, unspecified Category: Medical Plan: Recent total cholesterol and LDL levels are elevated, 284 and 203 respectively, previous level were 249 and 159 respectively. Atorvastatin 10 mg daily ordered; advised to take as prescribed. Instructed on the risks, benefits, and potential adverse reactions of the medication. Advised to limit foods high in saturated fat and avoid foods high in trans fat. Routine exercise encouraged. Fast for 10-12 hours, may drink water, and perform lipid panel blood work a few days before next visit. Follow-up for telehealth visit in 2 months. Verbalized understanding and agreed with the plan. (3) Elevated fasting glucose: Code(s): R73.01 - Impaired fasting glucose Category: Medical Plan: Recent fasting glucose is slightly elevated, 113. She has history of elevated fasting glucose. A1c today is 5.5%. Healthy diet and routine exercise encouraged. Verbalized understanding and agreed with the plan. (4) Hyperbilirubinemia: Code(s): E80.6 - Other disorders of bilirubin metabolism Category: Medical Plan: Recent bilirubin is slightly elevated, 1.2, AST slightly elevated, 33. Fatty liver deposit is possible. Routine exercise/weight management encouraged. Will monitor lipid panel annually or as needed. Verbalized understanding and agreed with the plan. (5) Elevated AST (SGOT): Code(s): R74.01 - Elevation of levels of liver transaminase levels Category: Medical Plan: Plan as above. (6) Vitamin D deficiency: Code(s): E55.9 - Vitamin D deficiency, unspecified Category: Medical Plan: Recent vitamin-D level is low, 23.9. Vitamin D3 25 mcg daily ordered; advised to take as prescribed. Will recheck vitamin-D level in 2 months. Verbalized understanding and agreed with the plan. (7) Anxiety: Comment: Rule out POOL; rule out OCD Code(s): F41.9 - Anxiety disorder, unspecified Category: Medical Plan: She notes that she has always have panic attacks. She notes that she has been very anxious. She also reports depression. She notes that her symptoms are usually controlled on when she is on the effective medication regimen. She denies SI/HI/AVH. PHQ-9 and POOL-7 scores revealed moderate depression and severe anxiety respectively. Ondansetron ordered for nausea. Continue current treatment regimen. Routine exercise encouraged. Follow-up with Neurology as planned. Verbalized understanding and agreed with the plan. (8) Panic disorder: Code(s): F41.0 - Panic disorder [episodic paroxysmal anxiety] Category: Medical Plan: Plan as above. (9) Bipolar I disorder: Comment: Provisional diagnosis Code(s): F31.9 - Bipolar disorder, unspecified Category: Medical Plan: Plan as above. (10) Onychomycosis: Code(s): B35.1 - Tinea unguium Category: Medical Plan: Reports fungal infection not the nails of her feet for which she requests medication. Thick/hardened/discolored nails of both feet, worse on both great toes. Ciclopirox topical cream as prescribed. Follow-up as needed. Verbalized understanding and agreed with the plan. (11) Bowel habit changes: Code(s): R19.4 - Change in bowel habit Category: Medical Plan: She notes that she is extremely upset. She notes that her bowel movements changes from diarrhea to hard stools. She had small pieces like gravel stools this morning and noticed off-white particle in her stools which resembles tapeworm. She had upset stomach, nausea, and non-bloody vomiting the past 3 days. She attributes her nausea/vomiting to anxiety symptoms. No acute abdominal symptoms. Abdomen tender to palpation. Active bowel sounds x4. Healthy diet encouraged. Zofran as prescribed. Stool ova and parasite ordered. Follow-up with worsening or new symptoms. Verbalized understanding and agreed with the plan. (12) Breast cancer screening by mammogram: Code(s): Z12.31 - Encounter for screening mammogram for malignant neoplasm of breast Category: Medical Plan: She has never had a mammogram. Mammogram ordered. Plan Total time for this visit was 75 minutes. This include 60 minutes with patient for complete physical exam and chronic disease management/treatment, and 15 minutes reviewing, coordinating plan of care, and documenting. Orders: Orders TDaP Immunization 12/06/24 Z23 - Encounter for immunization AMB Hemoglobin A1c 12/06/24 Z13.9 - Encounter for screening, unspecified MM screening mammo BI 12/06/24 Z12.31 - Encounter for screening mammogram for malignant neoplasm of breast Ova and Parasite 12/06/24 R19.4 - Change in bowel habit Medications: New atorvastatin (Lipitor) 10 mg PO BEDTIME 30 tabs 3RF 30 days cholecalciferol (vitamin D3) 25 mcg PO DAILY 90 tabs 1RF 90 days ondansetron 4 mg PO Q8H PRN 14 tabs 0RF nausea and vomiting ciclopirox 0.77% 1 appl topical BID 30 grams 2RF 4 weeks Refilled nicotine (polacrilex) 4 mg buccal Q2H PRN 100 ea 0RF nicotine cravings 30 days nicotine Apply 21 mg patch q.d. x6 weeks, then apply 14 mg patch q.d. x2 weeks, then apply 7 mg patch q.d. x2 weeks. Stop cigarette use at treatment onset. 1 patch transdermal DAILY 70 ea 0RF 10 weeks
[2024-12-06 09:38] VITALS: BP 140/87; PULSE 86; RESP 16; TEMP 36.4; O2SAT 98; BMI 22.4
--- OUTSIDE RECORDS SUMMARY | 2024-12-06 10:27 | XMS_ITS | Encounter Summary ---
Author Organization [facility] Address [address] [facility] [address] [place] [phone] Phone Care Team Providers Care Regional Business Manager Name Role Phone Pcp, Unknown Primary Care Provider Bertin Delarosa MD Primary Care Provider [phone] Encounter Details Date Type Department Care Team (Late st Contact Info) Description 03/30/2019 Procedure Pass OR Admitting Dept - Virtual Department [address] [place] [address] Social History Tobacco Use Types Packs/Day Years [...] documented as of this encounter Care Teams Regional Business Manager Relationship Specialty Start Date End Date Pcp, Unknown PCP - General 03/29/19 03/31/19 Bertin Ruiz MD [facility] [place] [address] PCP - General Internal Medicine 04/01/19 documented as of this encounter Additional Source Comments The information contained in this document represents components of the legal health record. It is not the complete legal health record.[facility]
--- OUTSIDE RECORDS SUMMARY | 2024-12-06 10:28 | XMS_ITS | Clinical Summary ---
Author Organization [employer] [facility] Address [address] [place] [address] Care Team Providers Care Cooker Chip Name Role Phone Unavailable Primary Care Provider [...] Most Recently Relevant to Health Maintenance Insurance [facility] MEDICAID STAND ADULT
--- OUTSIDE RECORDS SUMMARY | 2024-12-06 10:28 | XMS_ITS | Encounter Summary ---
Author Organization [employer] Address [address] [place] [address] Care Team Providers Care Deputy Sheriff Lieutenant Name Role Phone Unavailable Primary Care Provider Unavailabl e Reason for Visit * Reason Onset Date Comments running late 03/28/2024 Encounter Details Date Type Department Care Team (Late st Contact Info) Description 03/28/2024 Telephone C [facility] [address] [place] [address] Law Whyte, DMD [address] [place], [place] [id number] running late Social History Tobacco Use Types [...]
--- OUTSIDE RECORDS SUMMARY | 2024-12-06 10:28 | XMS_ITS | Encounter Summary ---
Author Organization [facility] Address [address] [place] [id number] Phone Care Team Providers Care Downstream Biomanufacturing Technician Name Role Phone Bertin Ruiz MD Primary Care Provider [phone] Encounter Details Date Type Department Care Team (Late st Contact Info) Description 01/01/2021 Procedure Pass [facility], Ct Scan - [facility] [address] [place] [address] Social History Tobacco Use Types Packs/Day Years [...] AM EDT documented as of this encounter Functional Status * Calculated C-SSRS Risk Score (Lifetime/Recent) Answer Date of Assessment Author No Risk Indicated 01/01/2021 9:19 PM EST Liliam Westbrook RN * [place] Suicide Severity Rating Scale (Screener/Recent Self-Report) Question Answer Date of Assessment Author 1. Wish to be (Past 1 Month) No 021 9:19 PM Liliam Charles RN 2. Non-Specific Active Suici charisse Thoughts (Past 1 Month) No 01/01/2021 9:19 PM Zoraida Charles RN 6. Suicidal Behavior (Lifetime) No 9:19 PM Liliam Charles RN documented as of this encounter Plan of Treatment Not on file documented as of this encounter Visit Diagnoses Not on filedocumented in this encounter Additional Health Concerns Infection Onset Date Last Indicated Resolved Time CoV-Risk 10/02/2023 10/02/2023 10/13/2023 1:22 AM EDT documented as of this encounter Care Teams Downstream Biomanufacturing Technician Relationship Specialty Start Date End Date Bertin Ruiz MD [facility] [place] [address] PCP - General Internal Medicine 04/01/19 documented as of this encounter Additional Source Comments The information contained in this document represents components of the legal health record. It is not the complete legal health record.[facility]
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
== END 2024-12-06 10:55 | disposition home or self-care (01) ==
LOC: HO.HMCFM 09:29
PROVIDERS: PCP Nurse Practitioner Family; Visit Provider Nurse Practitioner Family
DX: Z23 Encounter for immunization (principal); Z13.9 Encounter for screening, unspecified

== ENCOUNTER → 2024-12-06 09:28 | Outpatient (BNVA) | payer OTHER, SELFPAY | PROVIDERS: PCP Nurse Practitioner Family; Visit Provider Nurse Practitioner Family | DX: Z00.00 Encounter for general adult medical examination without abnormal findings (principal); E78.00 Pure hypercholesterolemia, unspecified; R73.01 Impaired fasting glucose; G43.909 Migraine, unspecified, not intractable, without status migrainosus; F98.8 Other specified behavioral and emotional disorders with onset usually occurring in childhood and adolescence; F41.9 Anxiety disorder, unspecified; E80.6 Other disorders of bilirubin metabolism; R74.01 Elevation of levels of liver transaminase levels; E55.9 Vitamin D deficiency, unspecified; F41.0 Panic disorder [episodic paroxysmal anxiety]; F31.9 Bipolar disorder, unspecified; B35.1 Tinea unguium; R19.4 Change in bowel habit; Z23 Encounter for immunization | CPT/HCPCS: 83036; 90471; 90715; 96127; 99212; 99396 ==

== ENCOUNTER 2024-12-06 14:56 | Outpatient (AMB) | payer OTHER, SELFPAY ==
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
== END 2024-12-06 15:14 | disposition home or self-care (01) ==
LOC: HO.HSM 14:57
PROVIDERS: PCP Nurse Practitioner Family; Visit Provider Psychiatry & Neurology Neurology
DX: G43.909 Migraine, unspecified, not intractable, without status migrainosus (principal); F98.8 Other specified behavioral and emotional disorders with onset usually occurring in childhood and adolescence; F41.9 Anxiety disorder, unspecified; F32.A Depression, unspecified
CPT/HCPCS: 99214

== ENCOUNTER 2024-12-28 11:01 | Outpatient (AMB) | payer OTHER, SELFPAY ==
--- NOTE | 2024-12-28 11:02 | A.OFFVIS_ITS ---
Vital Signs 12/28/24 11:11 Height 5 ft 8 in Weight 147 lb BMI 22.3 BP 142/98 H Blood Pressure Location Rt brachial Position Sitting Pulse 84 Pulse Source Pulse Oximeter Pulse Oximetry (%) 98 Oxygen Delivery Method Room Air Intake Visit Reasons: 2-3 mo f/u Intake Note: Est pt for mgmt of [facility] + bloating. Rediscuss colo. CC: C.O. being unable to implement the suggested dietary / lifestyle changes due to recent life events. Pt does report that she is going to be following up with Physical Wellness services through [facility], and they are going to help her with implementing these changes. Patient Services Clerk Required: No Accompanied by: Self / Same As Patient Allergies No Known Allergies (No Known Allergies*) Allergy (Verified 12/28/24 11:02) HPI HPI 2-3 mo f/u: Details: LAST VISIT Colon cancer screening Hepatitis C Elevated ALT measurement S/P repair of ventral hernia Postprandial diarrhea Postprandial epigastric pain Constipation Plan Will check plan min B12, folate, vitamin-D level. Stool for ova parasite. Patient reports epigastric pain will order lipase, transglutaminase. Will check her thyroid. Discussed with patient low FODMAP diet. List of food recommended as well as list of food to avoid given to patient. Patient was encouraged to take fiber with pre and probiotics daily. May take Dulcolax in the evening to help eliminate her bowels better. Increase fluid intake and activity to promote better bowel motility. Follow-up in 2-3 months to discuss the prep again and re- evaluate. Patient is agreeable to plan of care verbalizes understanding of instructions. She was given the opportunity to ask questions and all questions answered. ? Thank you for allowing me to participate in her care Orders Vitamin B12 and Folate Today R19.7 Vitamin D 25-OH (D2 and D3) Today E55.9 Ova and Parasite Today R19.7 Lipase Today R10.9 Transglutaminase IgA Today R10.9 Transglutaminase Ab IgG Today R10.9 TSH reflex Free T4 Today K59.00 New bisacodyl (Dulcolax (bisacodyl)) take 4 tabs at noon the day before your colonoscopy 20 mg (4 x 5 mg) PO ONCE 4 tabs 0RF constipation 1 day Z12.11 polyethylene glycol 3350 (Miralax) As directed by gastroenterology department at [facility] [place] 238 grams PO ONCE 238 grams 0RF Z12.11 TODAY'S VISIT Patient is here today for follow-up and to discuss prep before going for colonoscopy. Patient reports that she noticed that if she does changes what she eats and is more care for her symptoms are suppressed. Patient will get nutritional counseling through her insurance. Denies any trouble with anesthesia in the past. No history of sleep apnea. Not on any anticoagulation medication. Patient currently is taking Dulcolax as needed. Denies melena, hematochezia, unintentional weight loss or ribbon like stools. Patient denies any dyspepsia, dysphagia or odynophagia. [facility] Medical History Anxiety Bipolar I disorder Shingles Memory loss Headache Depression PTSD (post-traumatic stress disorder) Panic disorder ADHD Hx of fracture of leg Hepatitis C Tobacco dependence Surgical History S/P repair of ventral hernia (04/03/21) History of wisdom tooth extraction History of tonsillectomy Family History Paternal Grandfather Lung cancer Paternal Grandmother Lung cancer Father Alcohol abuse Colon cancer Social History Household Members: Significant Other and Children Housing: House Do you presently have visiting nurse or other home services: No Alcohol intake: former Patient Tobacco Use Status: Former Tobacco user Tobacco use type: Cigarette e-Cigarette/Vaping Use: Currently Using (nicotine ) Second Hand Smoke Exposure: No Substance Use Type: Marijuana service: No Current occupational status: employed 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 Current occupational exposures/hazards: No Sexual orientation: Straight/Heterosexual Cognitive needs: No Hearing needs: No Vision needs: No Female Reproductive History Menstrual Age of Menarche: 16 Review of Systems Const Denies weight gain and Denies weight loss ENT Reports no additional complaints, Denies dysphagia and Denies odynophagia Card Reports no additional complaints Resp Reports no additional complaints GI Denies abdominal pain, Denies belching, Denies melena, Reports bloating, Denies change in bowel habits, Reports constipation, Reports GI cramping, Denies dys phagia, Denies excessive flatus, Denies dyspepsia, Reports heartburn, Denies diarrhea, Reports loose stools, Denies nausea, Denies odynophagia and Denies vomiting Reports no additional complaints Musc Reports no additional complaints Neuro Reports no additional complaints Psych Reports no additional complaints Endo Reports no additional complaints Physical Exam Vital Signs: Last Vital Signs Pulse 84 12/28/24 11:11 BP 142/98 H 12/28/24 11:11 Pulse Ox 98 12/28/24 11:11 Oxygen Delivery Method Room Air 12/28/24 11:11 BMI result Body Mass Index 22.3 Const General: healthy appearing, no acute distress and well developed Nutritional Appearance: well nourished Orientation/consciousness: patient oriented x3 Resp Effort & Inspection: normal respiratory effort, able to speak in complete sentences, no tracheal deviation and symmetric chest movement Auscultation: clear to auscultation bilaterally Cardio Rate: regular rate GI Inspection: Yes normal to inspection and No distended Palpation (GI): Soft to palpation, not firm, nontender and No hepatosplenomegaly present Auscultation: normal bowel sounds General: Yes no CVA tenderness Back/Spine/Pelvis Back: no CVA tenderness Skin General skin exam: elasticity normal, turgor normal and dry skin Neuro General: patient oriented x3 Psych Appearance: grossly normal Mental Status: mental status grossly normal Results Reviewed Results Reviewed: Laboratory Tests 12/28/24 12:05 Lipase 13 Vitamin B12 891 25-OH Vitamin D Total 24 L Folate 8.5 TSH 0.86 Tiss Transglutamin IgA <1.0 Assessment & Plan Assessment & Plan (1) Bowel habit changes: Code(s): R19.4 - Change in bowel habit Category: Medical (2) Colon cancer screening: Code(s): Z12.11 - Encounter for screening for malignant neoplasm of colon Category: Medical (3) Hepatitis C: Code(s): B19.20 - Unspecified viral hepatitis C without hepatic coma Category: Medical Qualifiers: Hepatic coma status: without hepatic coma Viral hepatitis chronicity: chronic Qualified Code(s): B18.2 - Chronic viral hepatitis C (4) Elevated ALT measurement: Code(s): R74.01 - Elevation of levels of liver transaminase levels Category: Medical (5) S/P repair of ventral hernia: Onset Date: 04/03/21 Code(s): Z98.890 - Other specified postprocedural states; Z87.19 - Personal history of other diseases of the digestive system Category: Surgical (6) Postprandial diarrhea: Code(s): K52.9 - Noninfective gastroenteritis and colitis, unspecified (7) Postprandial epigastric pain: Code(s): R10.13 - Epigastric pain (8) Constipation: Code(s): K59.00 - Constipation, unspecified Qualifiers: Constipation type: slow transit constipation Qualified Code(s): K59.01 - Slow transit constipation Plan Patient will continue avoiding dietary triggers and late night snacking. Staying upright for minimum 3 hours after meals discussed with patient. Patient will try to get stool sample. Continue low FODMAP diet. Patient will be sent for colonoscopy. What to expect before during and after procedure discussed with patient. Stressed the importance of good bowel prep and clear liquid diet day before procedure. Patient will be soon after the procedure. Patient was encouraged to call our office if she will have any GI concerning symptoms. She is agreeable to current plan of care and verbalizes understanding of instructions. She was given the opportunity to ask questions and all questions answered. Thank you for allowing me to participate in her care Medications: New bisacodyl (Dulcolax (bisacodyl)) 10 mg (2 x 5 mg) PO BEDTIME 180 tabs 4RF Coding Level of Care Code Est Pt Level 4 (70072) Complex visit Add On G2211 Diagnoses Bowel habit changes R19.4 Colon cancer screening Z12.11 Chronic hepatitis C without hepatic coma B18.2 Hepatic coma status: without hepatic coma Viral hepatitis chronicity: chronic Elevated ALT measurement R74.01 S/P repair of ventral hernia Z98.890; Z87.19 Postprandial diarrhea K52.9 Postprandial epigastric pain R10.13 Slow transit constipation K59.01 Constipation type: slow transit constipation Time Spent (min) 35 Comment 25 minutes spent with patient and additional 10 minutes spent reviewing her records
[2024-12-28 11:11] VITALS: BP 142/98; PULSE 84; O2SAT 98; BMI 22.3
--- OUTSIDE RECORDS SUMMARY | 2024-12-28 13:07 | XMS_ITS | Encounter Summary ---
Author Organization [employer] Address [address] [place] [address] Care Team Providers Care Professor Of Theatre Name Role Phone Unavailable Primary Care Provider Unavailabl e Reason for Visit * Reason Onset Date Comments running late 03/28/2024 Encounter Details Date Type Department Care Team (Late st Contact Info) Description 03/28/2024 Telephone C [facility] [address] [place] [address] Law Whyte, DMD [address], [place] [id number] running late Social History Tobacco Use Types [...]
--- OUTSIDE RECORDS SUMMARY | 2024-12-28 13:07 | XMS_ITS | Encounter Summary ---
Author Organization [facility] Address [address] [facility] [address] [place] [address] Phone Care Team Providers Care Target Protection Specialist Name Role Phone Pcp, Unknown Primary Care Provider Bertin Delarosa MD Primary Care Provider [phone] Encounter Details Date Type Department Care Team (Late st Contact Info) Description 03/30/2019 Procedure Pass OR Admitting Dept - Virtual Department [address] [place] [address] Social History Tobacco Use Types Packs/Day Years [...] documented as of this encounter Care Teams Target Protection Specialist Relationship Specialty Start Date End Date Pcp, Unknown PCP - General 03/29/19 03/31/19 Bertin Ruiz MD [facility] [place] [address] PCP - General Internal Medicine 04/01/19 documented as of this encounter Additional Source Comments The information contained in this document represents components of the legal health record. It is not the complete legal health record.[facility]
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
--- OUTSIDE RECORDS SUMMARY | 2024-12-28 13:07 | XMS_ITS | Encounter Summary ---
Author Organization [facility] Address [address] [place] [address] Phone Care Team Providers Care Bulk Truck Driver Name Role Phone Bertin Ruiz MD Primary Care Provider [phone] Encounter Details Date Type Department Care Team (Late st Contact Info) Description 01/01/2021 Procedure Pass [facility], [facility] Scan - [facility] [address] [place] [address] Social History Tobacco Use Types Packs/Day Years [...] 9:19 PM EST Liliam Westbrook RN * [place] Suicide Severity Rating Scale (Screener/Recent Self-Report) Question [...] documented as of this encounter Care Teams Bulk Truck Driver Relationship Specialty Start Date End Date Bertin Ruiz MD [facility] [place] [address] PCP - General Internal Medicine 04/01/19 documented as of this encounter Additional Source Comments The information contained in this document represents components of the legal health record. It is not the complete legal health record.[facility]
--- OUTSIDE RECORDS SUMMARY | 2024-12-28 13:07 | XMS_ITS | Clinical Summary ---
Author Organization [employer] [facility] Address [address] [place] [address] Care Team Providers Care Lactation Nurse Name Role Phone Unavailable Primary Care [...] Most Recently Relevant to Health Maintenance Insurance [facility] MEDICAID STAND ADULT
== END 2024-12-28 12:30 | disposition home or self-care (01) ==
PROVIDERS: PCP Nurse Practitioner Family; Visit Provider Nurse Practitioner Family
DX: R19.4 Change in bowel habit (principal); Z12.11 Encounter for screening for malignant neoplasm of colon; B18.2 Chronic viral hepatitis C; R74.01 Elevation of levels of liver transaminase levels; Z98.890 Other specified postprocedural states; Z87.19 Personal history of other diseases of the digestive system; K52.9 Noninfective gastroenteritis and colitis, unspecified; R10.13 Epigastric pain; K59.01 Slow transit constipation
CPT/HCPCS: 99214

== ENCOUNTER 2024-12-28 11:01 | Outpatient (REF) | payer OTHER, SELFPAY ==
[2024-12-28 13:03] LABS: Lipase 13 U/L (8-78)
[2024-12-28 13:27] LABS: Folate 8.5 ng/mL (> or = 4.0); Vitamin B12 891 pg/mL (200-900)
[2024-12-29 20:08] LABS: Transglutaminase Ab IgG <1.0 U/mL
[2025-01-06 11:34] LABS: Vitamin D 25-OH, D2 <4 ng/mL; Vitamin D 25-OH, D3 24 ng/mL; Vitamin D 25-OH, Total 24 ng/mL (30-100)
== END 2024-12-28 11:02 | disposition home or self-care (01) ==
LOC: HO.LDS 11:01
PROVIDERS: Absent Provider Nurse Practitioner Family; PCP Nurse Practitioner Family; Visit Provider Nurse Practitioner Family
DX: K59.01 Slow transit constipation (principal); B18.2 Chronic viral hepatitis C; R74.01 Elevation of levels of liver transaminase levels; E55.9 Vitamin D deficiency, unspecified; K52.9 Noninfective gastroenteritis and colitis, unspecified; Z12.11 Encounter for screening for malignant neoplasm of colon; Z98.890 Other specified postprocedural states; Z87.19 Personal history of other diseases of the digestive system
CPT/HCPCS: 36415; 82306; 82607; 82746; 83690; 84443; 86364; 99212